=== PATIENT | female | born 1935 | race Caucasian/White ===

== ENCOUNTER 2016-08-14 09:31 | Emergency (ER) | payer MEDICARE ==
[2016-08-14 09:42] VITALS: BP 162/83
--- NOTE | 2016-08-14 12:39 | UC ---
Norma Mcclain Edward, scribed for Sera Ridley DO on 08/14/16 at 1020 . General HPI - HPI Summary HPI Summary: 81 y/o female presents to [facility] with weakness in R leg that started around a week ago. This has caused the patient to be unsteady on her feet; after bracing a fall recently the patient also has an abrasion on her R forearm. Associated sx : SOB, palpitations, decreased appetite recently per patients neighbor, dehydration, dizziness when she gets up fast and back pain that started 6 weeks ago. Patient notes no change in medication. Two weeks ago the patient developed a cold and diarrhea; since then the patient's overall condition has gotten progressively worse. Denies CP, sore throat, ear ache, dysuria, change in urine color and odor, ABD pain, body aches, and slurred speech. SHx hip replacement. No FHx HTN and heart disease. Non-smoker. - History of Current Complaint Chief Complaint: UCGeneralIllness Stated Complaint: WEAKNESS Hx Obtained From: Patient, Family/Public Relations Studies Director - Patient's neighbor Onset/Duration: Gradual Onset - Weakness started 1 week ago. General worsening of condition started two weeks ago Associated Signs & Symptoms: Positive: Diarrhea, Palpitations, SOB, Weakness - R leg, Other - Developed a cold 2 weeks ago. Negative: Abdominal Pain, Back Pain, Chest Pain - Allergy/Home Medications Allergies/Adverse Reactions: Allergies Allergy/AdvReac Type Severity Reaction Status Date / Time Penicillins [PCN] Allergy Rash Verified 12/25/13 23:16 PMH/Surg Hx/FS Hx/Imm Hx Previously Healthy: Yes Other History Of: Negative For: HIV, Hepatitis B - Surgical History Surgical History: Yes Surgery Procedure, Year, and Place: bilat hip replacement - Family History Known Family History: Negative: Cardiac Disease, Hypertension - Social History Occupation: Retired Lives: Alone Alcohol Use: Occasionally Substance Use Type: None Smoking Status (MU): Never Smoked Tobacco Review of Systems Constitutional: Other - Dehydration Skin: Bruising - R arm, Other - Abrasion on R arm Eyes: Negative ENT: Negative Respiratory: Shortness Of Breath Cardiovascular: Palpitations Gastrointestinal: Diarrhea, Other - No ABD pain, N/V Genitourinary: Negative Motor: Weakness - R leg Neurovascular: Negative Musculoskeletal: Negative Neurological: Negative Psychological: Negative All Other Systems Reviewed And Are Negative: Yes Physical Exam Triage Information Reviewed: Yes Appearance: Well-Appearing, No Pain Distress, Well-Nourished Vital Signs: Initial Vital Signs Temp 98 F 08/14/16 09:39 Pulse 114 08/14/16 09:39 Resp 18 08/14/16 09:39 BP 162/83 08/14/16 09:39 Pulse Ox 98 08/14/16 09:39 Vital Signs Reviewed: Yes Eyes: Positive: Conjunctiva Clear. Negative: Discharge ENT: Positive: Hearing grossly normal, Other: - Dry mucous membranes. Negative : Muffled/hoarse voice Neck exam: Normal Neck: Positive: Supple Respiratory: Positive: Lungs clear, No respiratory distress, No accessory muscle use, Decreased breath sounds - L side Cardiovascular: Positive: Tachycardia, Other: - systolic murmr Musculoskeletal Exam: Normal Neurological: Positive: Alert, Muscle Tone Normal Psychological Exam: Normal Psychological: Positive: Age Appropriate Behavior Skin: Positive: Other - Skin tenting. Bruises, cuts and abrasions on R arm. Diagnostics - EKG Cardiac Rate: Tachycardia Cardiac Rhythm: Other Rhythm: Normal - Sinus Tachycardia @ [address] Segment: Normal - No ST changes Course/Dx - Course Course Of Treatment: High BP noted. - Differential Dx - Multi-Symptom Provider Diagnoses: weakness, dehydration, unsteady gait, dizziness, dyspnea Discharge - Discharge Plan Condition: Stable Disposition: ADMITTED TO [facility] Referrals: Jt Almaguer MD [Primary Care Provider] - Additional Instructions: PLEASE CHECK WITH PCP REGARDING HIGH BLOOD PRESSURE The documentation as recorded by the Norma freeman Edward accurately reflects the service I personally performed and the decisions made by , Sera Ridley DO.
== END 2016-08-14 10:50 | disposition short-term general hospital (02) ==
LOC: UCEAST 09:31
DX: M62.81 Muscle weakness (generalized) (principal); E86.0 Dehydration; R26.81 Unsteadiness on feet; R42 Dizziness and giddiness; R06.00 Dyspnea, unspecified
CPT/HCPCS: 93005; 99213; G0463

== ENCOUNTER 2016-08-14 11:13 | Inpatient (IN) | payer MEDICARE, OTHER ==
--- NOTE | 2016-08-14 14:36 | RAD ---
HISTORY: Tachycardia COMPARISONS: None VIEWS:1: Single frontal portable view of the chest at 2 3:00 PM FINDINGS: LINES AND TUBES: None. CARDIOMEDIASTINAL SILHOUETTE: The cardiomediastinal silhouette is normal for portable technique. PLEURA: There is a moderate pleural effusion that may be partially loculated. LUNG PARENCHYMA: There is confluent alveolar opacification of the left lower lung. ABDOMEN: The upper abdomen is clear. There is no subphrenic gas. BONES AND SOFT TISSUES: No bone or soft tissue abnormalities are noted. IMPRESSION: 1. MODERATE LEFT PLEURAL EFFUSION AND MAY BE PARTIALLY LOCULATED. 2. LEFT LOWER LUNG ATELECTASIS VERSUS CONSOLIDATION
--- NOTE | 2016-08-14 14:38 | RAD ---
HISTORY: Bilateral extremity weakness, tachycardia, lethargy COMPARISONS: None TECHNIQUE: Multiple contiguous axial CT scans were obtained of the head without intravenous contrast. FINDINGS: HEMORRHAGE/INFARCT: There is no hemorrhage or acute infarct. MASSES/SHIFT: There is no mass or shift. EXTRA-AXIAL SPACES: There are no extra-axial fluid collections. SULCI AND VENTRICLES: The sulci and ventricles are normal in size and position for the patient's stated age. CEREBRUM: There are no focal parenchymal abnormalities. BRAINSTEM: There are no focal parenchymal abnormalities. CEREBELLUM: There are no focal parenchymal abnormalities. VESSELS: The vessels are grossly normal. PARANASAL SINUSES: The paranasal sinuses are clear. ORBITS: The orbits are unremarkable. BONES AND SOFT TISSUE: No bone or soft tissue abnormalities are noted. OTHER: None IMPRESSION: NO ACUTE INTRACRANIAL PATHOLOGY.
[2016-08-14 15:22] LABS: Hematocrit 31 % (35-47); Hemoglobin 9.9 g/dl (12.0-16.0); Mean Corpuscular HGB Conc 32 g/dl (31-36); Mean Corpuscular Hemoglobin 26 pg (27-31); Mean Corpuscular Volume 83 fL (80-97); Mean Platelet Volume 7 um3 (7.4-10.4); Red Blood Count 3.76 10^6/ul (4.0-5.4); Red Cell Distribution Width 16 % (10.5-15); White Blood Count 9.9 10^3/ul (3.5-10.8)
[2016-08-14 15:36] LABS: Albumin 3.1 g/dL (3.2-5.2); BUN/Creatinine Ratio 32.7 (8-20); C Reactive Protein 222.68 mg/L (< 5.00); Calcium 9.3 mg/dL (8.6-10.3); EGFR African American 145.2 (>60); EGFR Non-African American 112.9 (>60); Globulin 4.2 g/dL (2-4); Total Bilirubin 0.5 mg/dL (0.2-1.0); Total Protein 7.3 g/dL (6.4-8.9)
[2016-08-14 15:37] LABS: Troponin I 0.01 ng/mL (<0.04)
[2016-08-14] MEDS ORDERED: NS 0.9% 1000 ML* 1,000 ML IV SCH (17:45)
[2016-08-14 17:48] LABS: Magnesium 1.9 mg/dL (1.9-2.7)
[2016-08-14 17:57] LABS: TSH (Thyroid Stimulating Horm) 3.7 mcIU/mL (0.34-5.60)
[2016-08-14] MEDS ORDERED: Enoxaparin(*) 40 MG/0.4 ML SYR SUBCUT SCH (18:00)
[2016-08-14] MEDS ORDERED: NS 0.9% 500 ML BAG* 500 ML IV ONE (18:02)
[2016-08-14 18:15] LABS: Urine Bacteria Absent (Absent); Urine Bilirubin Negative (Negative); Urine Glucose Negative (Negative); Urine Nitrite Negative (Negative)
[2016-08-14] MEDS ORDERED: Iohexol 350* (CONTRAST) 500 ML MDV IV ONE (18:17)
--- NOTE | 2016-08-14 18:18 | ED ---
Peyton Mcclain Alfonso, scribed for Levi Yi MD on 08/14/16 at 1311 . Complex/Multi-Sys Presentation - HPI Summary HPI Summary: This patient is an 81 year old F BIBA to [facility] accompanied by two neighbors with a chief complaint of weakness since 10 days ago. The weakness is worse as of 3 days ago. Pt reports the weakness began in her RLE but is now in bilateral LE. Pt reports my right leg would give out on me and it took me three attempts to get out of my recliner chair yesterday. Pt reports a fall secondary to weakness a week ago. Pt rates the pain 0/10 in severity. Symptoms aggravated and alleviated by nothing. Pt reports SOB, palpitations, diaphoresis , loss of appetite, tiredness, and back pain. Pt denies insomnia, urinary symptoms, and bowel symptoms. Pt presented to [facility] earlier today with provider diagnoses of weakness, dehydration, unsteady gait, dizziness, and dyspnea. PMHx of HTN. - History Of Current Complaint Chief Complaint: EDGeneral Time Seen by Provider: 08/14/16 13:03 Hx Obtained From: Patient Onset/Duration: Sudden Onset, Lasting Days - 10 days, Worse Since - 3 days Timing: Constant Severity Currently: Mild Severity Initially: Mild Aggravating Factor(s): Nothing. Alleviating Factor(s): Nothing. Associated Signs And Symptoms: Positive: Recent Trauma - Fall about 1 week ago secondary to weakness, Other - Positive LE weakness, SOB, palpitations, diaphoresis, loss of appetite, tiredness, and back pain; negative insomnia, urinary symptoms, and bowel symptoms. - Allergies/Home Medications Allergies/Adverse Reactions: Allergies Allergy/AdvReac Type Severity Reaction Status Date / Time Penicillins [PCN] Allergy Rash Verified 12/25/13 23:16 PMH/Surg Hx/FS Hx/Imm Hx Cardiovascular History: Reports: Hx Hypertension Opthamlomology History: Denies: Hx Legally Blind EENT History: Denies: Hx Deafness - Surgical History Surgery Procedure, Year, and Place: bilat hip replacement Infectious Disease History: No Infectious Disease History: Denies: Hx Clostridium Difficile, Hx Hepatitis, Hx Human Immunodeficiency Virus (HIV), Hx of Known/Suspected MRSA, Hx Shingles, Hx Tuberculosis, Hx Known/ Suspected VRE, Hx Known/Suspected VRSA, History Other Infectious Disease, Traveled Outside the [place] in Last 30 Days - Family History Known Family History: Negative: Cardiac Disease, Hypertension - Social History Occupation: Retired Lives: Alone Alcohol Use: Occasionally Substance Use Type: Reports: None Smoking Status (MU): Never Smoked Tobacco Review of Systems Positive: Skin Diaphoresis Positive: Palpitations Positive: Shortness Of Breath Positive: Other - Positive loss of appetite; negative bowel symptoms Positive: no symptoms reported Positive: Arthralgia - Positive back pain Neurological: Other - Positive tired; negative insomnia, Positive: Weakness - LE All Other Systems Reviewed And Are Negative: Yes Physical Exam Triage Information Reviewed: Yes Vital Signs On Initial Exam: Initial Vitals BP 155/70 08/14/16 11:26 Vital Signs Reviewed: Yes Appearance: Positive: Well-Appearing, No Pain Distress Skin: Positive: Warm, Skin Color Reflects Adequate Perfusion, Dry Head/Face: Positive: Normal Head/Face Inspection Eyes: Positive: Normal ENT: Positive: Normal ENT inspection Neck: Positive: Supple, Nontender Respiratory/Lung Sounds: Positive: Clear to Auscultation, Breath Sounds Present Cardiovascular: Positive: RRR, Tachycardia Abdomen Description: Positive: Nontender, No Organomegaly Bowel Sounds: Positive: Present Musculoskeletal: Positive: Normal, Strength/ROM Intact Neurological: Positive: Normal, Sensory/Motor Intact, Alert, Oriented to Person Place, Time, CN Intact II-III Psychiatric: Positive: Affect/Mood Appropriate Diagnostics - Vital Signs Vital Signs Temp Pulse Resp BP Pulse Ox 08/14/16 12:00 103 35 138/71 95 08/14/16 11:30 99.3 F 109 24 139/62 96 08/14/16 11:27 28 08/14/16 11:26 155/70 - Laboratory Lab Results: Lab Results 08/14/16 08/14/16 08/14/16 Range/Units 15:10 15:10 15:10 WBC 9.9 (3.5-10.8) 10^3/ul RBC 3.76 L (4.0-5.4) 10^6/ul Hgb 9.9 L (12.0-16.0) g/dl Hct 31 L (35-47) % MCV 83 (80-97) fL MCH 26 L (27-31) pg MCHC 32 (31-36) g/dl RDW 16 H (10.5-15) % Plt Count 392 (150-450) 10^3/ul MPV 7 L (7.4-10.4) um3 Neut % (Auto) 72.4 (38-83) % Lymph % (Auto) 15.3 L (25-47) % Queens % (Auto) 10.8 H (1-9) % Eos % (Auto) 0.8 (0-6) % Baso % (Auto) 0.7 (0-2) % Absolute Neuts (auto) 7.1 (1.5-7.7) 10^3/ul Absolute Lymphs (auto) 1.5 (1.0-4.8) 10^3/ul Absolute Monos (auto) 1.1 H (0-0.8) 10^3/ul Absolute Eos (auto) 0.1 (0-0.6) 10^3/ul Absolute Basos (auto) 0.1 (0-0.2) 10^3/ul Absolute Nucleated RBC 0 10^3/ul Nucleated RBC % 0 INR (Anticoag Therapy) (0.89-1.11) APTT (26.0-36.3) seconds D-Dimer, Quantitative (Less Than 230) ng/mL Sodium 133 (133-145) mmol/L Potassium 4.0 (3.5-5.0) mmol/L Chloride 99 L (101-111) mmol/L Carbon Dioxide 25 (22-32) mmol/L Anion Gap 9 (2-11) mmol/L BUN 17 (6-24) mg/dL Creatinine 0.52 (0.51-0.95) mg/dL Est GFR ( Amer) 145.2 (>60) Est GFR (Non-Af Amer) 112.9 (>60) BUN/Creatinine Ratio 32.7 H (8-20) Glucose 80 (70-100) mg/dL Lactic Acid 1.1 (0.5-2.0) mmol/L Calcium 9.3 (8.6-10.3) mg/dL Magnesium 1.9 (1.9-2.7) mg/dL Total Bilirubin 0.50 (0.2-1.0) mg/dL AST 21 (13-39) U/L ALT 11 (7-52) U/L Alkaline Phosphatase 84 (34-104) U/L Troponin I 0.01 (<0.04) ng/mL C-Reactive Protein 222.68 H (< 5.00) mg/L B-Natriuretic Peptide ( - 100) pg/mL Total Protein 7.3 (6.4-8.9) g/dL Albumin 3.1 L (3.2-5.2) g/dL Globulin 4.2 H (2-4) g/dL Albumin/Globulin Ratio 0.7 L (1-3) Procalcitonin (<0.6) ng/mL TSH 3.70 (0.34-5.60) mcIU/mL 08/14/16 08/14/16 08/14/16 Range/Units 15:10 15:10 15:50 WBC (3.5-10.8) 10^3/ul RBC (4.0-5.4) 10^6/ul Hgb (12.0-16.0) g/dl Hct (35-47) % MCV (80-97) fL MCH (27-31) pg MCHC (31-36) g/dl RDW (10.5-15) % Plt Count (150-450) 10^3/ul MPV (7.4-10.4) um3 Neut % (Auto) (38-83) % Lymph % (Auto) (25-47) % Queens % (Auto) (1-9) % Eos % (Auto) (0-6) % Baso % (Auto) (0-2) % Absolute Neuts (auto) (1.5-7.7) 10^3/ul Absolute Lymphs (auto) (1.0-4.8) 10^3/ul Absolute Monos (auto) (0-0.8) 10^3/ul Absolute Eos (auto) (0-0.6) 10^3/ul Absolute Basos (auto) (0-0.2) 10^3/ul Absolute Nucleated RBC 10^3/ul Nucleated RBC % INR (Anticoag Therapy) 1.02 (0.89-1.11) APTT 30.7 (26.0-36.3) seconds D-Dimer, Quantitative 554 H (Less Than 230) ng/mL Sodium (133-145) mmol/L Potassium (3.5-5.0) mmol/L Chloride (101-111) mmol/L Carbon Dioxide (22-32) mmol/L Anion Gap (2-11) mmol/L BUN (6-24) mg/dL Creatinine (0.51-0.95) mg/dL Est GFR ( Amer) (>60) Est GFR (Non-Af Amer) (>60) BUN/Creatinine Ratio (8-20) Glucose (70-100) mg/dL Lactic Acid (0.5-2.0) mmol/L Calcium (8.6-10.3) mg/dL Magnesium (1.9-2.7) mg/dL Total Bilirubin (0.2-1.0) mg/dL AST (13-39) U/L ALT (7-52) U/L Alkaline Phosphatase (34-104) U/L Troponin I (<0.04) ng/mL C-Reactive Protein (< 5.00) mg/L B-Natriuretic Peptide 169 H ( - 100) pg/mL Total Protein (6.4-8.9) g/dL Albumin (3.2-5.2) g/dL Globulin (2-4) g/dL Albumin/Globulin Ratio (1-3) Procalcitonin 0.9 H (<0.6) ng/mL TSH (0.34-5.60) mcIU/mL Result Diagrams: 08/14/16 15:10 08/14/16 15:10 Lab Statement: Any lab studies that have been ordered have been reviewed, and results considered in the medical decision making process. - Radiology CXR Radiology Interpretation Completed By: Radiologist - 1. MODERATE LEFT PLEURAL EFFUSION AND MAY BE PARTIALLY LOCULATED. 2. LEFT LOWER LUNG ATELECTASIS VERSUS CONSOLIDATION - CT Brain CT CT Interpretation Completed By: Radiologist - NO ACUTE INTRACRANIAL PATHOLOGY. - EKG 1536 Cardiac Rate: Tachycardia - BPM 102 EKG Rhythm: Sinus Tachycardia EKG Comparison: No Significant Change - Unchanged from [facility] EKG earlier today at 1024. Re-Evaluation - Re-Evaluation First Eval Re-Evaluation Time: 16:10 Change: Unchanged Comment: Pt is still tachycardic and tachypneic. Complex Multi-Symp Course/Dx Course Of Treatment: Ms. Scott presented with some vague C/O but was noticed to be tachycardic and tachypneic. She was found to have a large left pleural effusion and was admitted to the hospitalist service for a diagnostic and therapeutic pleurocentesis. - Diagnoses Provider Diagnoses: Pleural effusion - Physician Notifications Discussed Care Of Patient With: Tg Rico Time Discussed With Above Provider: 16:13 Instructed by Provider To: Other - Consulted Dr. Rico (Hospitalist) who agrees to admit. - Critical Care Time Critical Care Time: 30-74 min Discharge - Discharge Plan Condition: Stable Disposition: ADMITTED TO [facility] documentation as recorded by the Peyton freeman Alfonso accurately reflects the service I personally performed and the decisions made by me, Levi Yi MD.
--- NOTE | 2016-08-14 18:39 | RAD ---
HISTORY: Pleural effusion, rule out PE COMPARISONS: None TECHNIQUE: Multiple contiguous axial CT scans of the chest were obtained after the administration of nonionic intravenous contrast, timed to the pulmonary arterial phase of contrast enhancement.. Coronal and sagittal multiplanar reformations are also submitted for review. FINDINGS: NECK AND THYROID: The lower neck and thyroid are unremarkable. CHEST WALL: There is no lower cervical, axillary, or supraclavicular lymphadenopathy by size criteria. HEART AND PERICARDIUM: The heart is unremarkable. There is an enlarged lymph node of the pericardial fat on the left. AORTA AND PULMONARY VASCULATURE: There is no pulmonary arterial filling defect to suggest pulmonary embolism. There is no linear filling defect within the aorta to suggest aortic dissection. There is atherosclerosis of the thoracic aorta MEDIASTINUM: There are subcentimeter short axis AP window and pretracheal lymph nodes. SILVANO: There is no hilar lymphadenopathy by size criteria. AIRWAY AND ESOPHAGUS: The airway is unremarkable, without endobronchial filling defect. The esophagus is grossly normal. LUNG PARENCHYMA: There is mild interlobular septal thickening of the left upper lobe. PLEURA: There is extensive nodular pleural thickening throughout the left hemithorax, including along the fissure and diaphragmatic surface. UPPER ABDOMEN: The upper abdomen is unremarkable. BONES AND SOFT TISSUES: Degenerative changes are noted of the spine OTHER: None. IMPRESSION: 1. NO PULMONARY ARTERIAL FILLING DEFECT TO SUGGEST PULMONARY EMBOLISM. 2. THERE IS EXTENSIVE NODULAR PLEURAL THICKENING OF THE LEFT HEMITHORAX, WITH AN ENLARGED PERICARDIAL LYMPH NODE, CONCERNING FOR NEOPLASM
[2016-08-14] MEDS ORDERED: Iohexol 350* (CONTRAST) 500 ML MDV IV SCH (19:00)
[2016-08-14] MEDS ORDERED: cefTRIAXone VIAL(*) 1,000 MG in NS 0.9% 50 ML* 50 ML IVPB SCH (20:00)
[2016-08-14] MEDS ORDERED: Azithromycin IV(*) 500 MG in NS 0.9% 250 ML* 250 ML IVPB SCH (20:30)
[2016-08-14] MEDS: Metoprolol Tartrate TAB* 25 MG PO SCH (20:36)
[2016-08-14] MEDS: Enoxaparin(*) 40 MG/0.4 ML SYR SUBCUT SCH (20:40)
--- NOTE | 2016-08-15 01:27 | HP ---
CC: Dr. Almaguer * MEDICINE HISTORY AND PHYSICAL: DATE OF ADMISSION: 08/14/16 PROVIDER: Anna Espitia NP. ATTENDING PHYSICIAN: Dr. Tg Quan * (dictated by Anna Espitia NP). PRIMARY CARE PROVIDER: Dr. Jt Almaguer. CHIEF COMPLAINT: Shortness of breath and weakness. HISTORY OF PRESENT ILLNESS: Ms. Scott is an 81-year-old female who only reports a past medical history of hypertension, who presents today with concern for shortness of breath both at rest and with exertion that has been ongoing for at least a week, up to a week and a half. The patient reports that she has had increased activity intolerance and associated weakness. She has had a couple of near falls but denies any head injury but did injure her right arm. She reports that she becomes weak and her legs give out. She denies syncopal episode or near syncopal episodes or any prodrome preceding these episodes. She states it is due to overall weakness that is new in onset. Again, she only reports history of high blood pressure. Denies any known thyroid history, diabetes, coronary artery disease or heart failure. The patient states that she was pretty healthy up until about a month ago when she had a cold and since then has had a lingering cough. The patient denies any recent fevers, subjective chills or sweats. She does report decreased p.o. intake and states that she has perhaps lost 5 to 10 pounds over the last 3 months without trying. Again, she reports having a cold about a month ago with a lingering nonproductive cough. She denies any chest pain or lower extremity edema. She denies syncope, orthopnea, daytime sleepiness. She does report palpitations and racing heart beat this morning. She denies any hemoptysis. She denies abdominal pain, nausea, vomiting, diarrhea. She denies dysuria, urinary frequency or hematuria. She actually feels she is dehydrated, but does not urinate as frequently anymore. She denies any focal weakness, sensory loss, ataxia, difficulty with speech. She denies any visual complaints, hearing complaints, swallowing issues or headache. She denies any new rashes or lesions. She does state that she has some back pain 3 to 4 days ago, which occurred before she fell. She describes that as muscle pain and used her friend's Salonpas patches with good effect. She denies any recent anxiety or depression or any history of mental health issues. The patient was originally seen at [facility] and then referred to the ER, as there was concern for tachycardia and high blood pressure. Here in the ER, the patient's evaluation included a CT of the brain, which was negative. Her EKG showed concern for sinus tachycardia with probable left ventricular hypertrophy. However, it was her chest x-ray which was most concerning, which showed a moderate left pleural effusion that may be partially loculated, as well as left lower lung atelectasis versus consolidation. PAST MEDICAL HISTORY: The patient only reports history of high blood pressure. HOME MEDICATIONS: The patient takes hydrochlorothiazide 25 mg daily. ALLERGIES: PENICILLIN. FAMILY HISTORY: The patient is unaware of medical history of her family members. SOCIAL HISTORY: She denies any former or current tobacco use. She states that she occasionally drinks alcohol. When asked to quantify, she states that she drinks 1 to 2 glasses of wine a day. She denies any drug use. 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 She lives independently by herself, with 4 cats. Her neighbors check in on her frequently. Her daughter, Mireya Haro, is her healthcare proxy and can be reached at [phone]. Mireya's , Marcelino aHro, can also be reached if Mireya is unavailable and he has a number [phone]. REVIEW OF SYSTEMS: As per HPI. PHYSICAL EXAMINATION GENERAL: Ms. Scott is a well-developed, appears younger than stated age female, who is lying in the ED stretcher, in no acute distress. VITAL SIGNS: Temperature 99.3, heart rate 110, respiratory rate 22, blood pressure 152/75, and O2 saturation is 96% on room air. HEENT: Head is atraumatic, normocephalic. Face is symmetrical. Pupils are equal, round, and reactive to light. Sclerae are anicteric. Extraocular movements are intact. Oral mucosa appears somewhat dry. NECK: Supple. The patient has full range of motion. No JVD noted. RESPIRATORY. The patient has decreased breath sounds on the left side, but aeration is heard through all lung rowe, though poor on the left. There is no accessory muscle use noted. CARDIAC: S1, S2 heart sounds. Regular rate and rhythm, though the patient is tachycardic. She has a harsh systolic murmur, grade 3/6 to 4/6. MUSCULOSKELETAL: There is no clubbing or cyanosis. The patient is able to move all extremities with apparent full range of motion. There is no peripheral edema. The patient has 2+ distal pulses. SKIN: There is an abrasion to the right arm. The patient does have some skin tenting. NEUROLOGIC: Cranial nerves II through XII are grossly intact. The patient moves all extremities. She follows directions. No focal deficits noted. Sensation is intact to light touch to the lower extremities. PSYCH: She is alert and oriented x3. Her affect is appropriate. LABORATORY DATA AND DIAGNOSTIC STUDIES: CBC: WBC 9.9, hemoglobin 9.9, hematocrit 31, platelet count 392. INR 1.02. CMP: Sodium 133, potassium 4.0, chloride 99, carbon dioxide 25, BUN 17, creatinine 0.52, glucose 80, lactic acid 1.1, calcium 9.3, magnesium 1.9. Total bilirubin 0.5, AST 21, ALT 11, alk phos 84. Troponin 0.01. CRP is 222.68. BNP 169. Albumin 3.1. The patient had a CT of the brain, chest x-ray, and EKG as per HPI. Again, chest x-ray shows concern for a left moderate pleural effusion that may be loculated. The patient has no old records for review. ASSESSMENT AND PLAN: Ms. Scott is an 81-year-old female who presents today with concern for weakness and dyspnea and was found to have a left-sided pleural effusion. She will be admitted to the telemetry floor. Plan is as follows: 1. Pleural effusion. The patient will be ordered an ultrasound-guided thoracentesis for Tuesday. She is hemodynamically stable. We will continue to monitor on telemetry. It is unclear as to why the patient has a pleural effusion, although there is concern for potential heart failure as well as pulmonary embolism. I will also check a CT of the chest to further evaluate the lung. Malignancy is also a consideration. The patient also reports a cold 1 month ago, which may have been pneumonia, but it sounds like she did not receive any antibiotic treatment for this. No evidence seen of this on CXR, however. She shows no sign of liver dysfunction or acute or chronic kidney dysfunction that would explain pleural effusion. Her symptoms of dyspnea and dry cough could be a sign of pleural effusion, but may also be infection or neoplasm. I will also check a procalcitonin, continue to monitor, and await diagnostic fluid testing. 3. Tachycardia. I am not sure how long the patient has had tachycardia. This may be in response to her pleural effusion. This may also be secondary to other factors such as a pulmonary embolism. The patient may also be having arrhythmias, which we have not yet captured here. We will continue to monitor her on telemetry. I do suspect the patient is dry, with her pleural effusion I will carefully give her some fluids as this may help with her tachycardia and I will also check a TSH and her electrolytes. Continue to monitor. Troponin is negative, she is not complaining of any chest pain. 4. Anemia. I am unsure of the acuity of this. The patient does not have any previous labs. We will attempt to obtain records from her PCP on Tuesday when [facility] is open. Continue to monitor for signs of bleeding. 5. Hypertension. The patient is hypertensive here. Her daughter brings in recorded blood pressures that one of her neighbors took and this neighbor is a nurse. The patient had blood pressures ranging from 147 to 170 systolic. At this time, I am holding her hydrochlorothiazide because again I suspect that she is dry and she does have decreased p.o. intake and is likely taking hydrochlorothiazide regardless of her p.o. intake. She may benefit from a diuretic. At this time, I will carefully rehydrate her with 500 mL of fluid and we will continue her on metoprolol at this time. We will also make p.r.n. hydralazine available. 6. Weakness, perhaps secondary to these acute processes. PT and OT are ordered. The patient does live independently, so she will need to be able to show an ability to effectively take care of herself prior to discharge. 7. FEN. The patient is ordered a heart-healthy diet. 8. DVT prophylaxis. Subcu Lovenox. 9. Code status: She is a full code. TIME SPENT: Time spent on this admission was approximately 60 minutes, more than half that time was spent [id number] with the patient obtaining history and physical, performing physical examination, and reviewing the plan of care. Plan of care was also reviewed with my attending, Dr. Quan, who is in agreement. ANNA ESPITIA, FISH STRAIGHTENER [id number]/[facility] #: [id number] [facility]ITALLast
[2016-08-15 05:55] LABS: Hematocrit 30 % (35-47); Hemoglobin 9.8 g/dl (12.0-16.0); Mean Corpuscular HGB Conc 32 g/dl (31-36); Mean Corpuscular Hemoglobin 27 pg (27-31); Mean Corpuscular Volume 83 fL (80-97); Mean Platelet Volume 8 um3 (7.4-10.4); Red Blood Count 3.66 10^6/ul (4.0-5.4); Red Cell Distribution Width 16 % (10.5-15); White Blood Count 7.3 10^3/ul (3.5-10.8)
[2016-08-15 06:09] LABS: BUN/Creatinine Ratio 29.8 (8-20); Calcium 8.5 mg/dL (8.6-10.3); EGFR African American 163.2 (>60); EGFR Non-African American 126.9 (>60); HDL Cholesterol 21.8 mg/dL; Potassium 3.2 mmol/L (3.5-5.0)
[2016-08-15] MEDS: Potassium Chlor TAB* 10 MEQ TAB.ER PO SCH ×3 (08:23→12:21)
[2016-08-15] MEDS: Metoprolol Tartrate TAB* 25 MG PO SCH ×2 (08:23→20:40)
--- NOTE | 2016-08-15 09:50 | PN ---
Subjective Date of Service: 08/15/16 Interval History: Weak, [place]. No cough. Appetite OK. Pt states she lost about 2 lbs recently. Objective Active Medications: Enoxaparin Sodium (Lovenox(*)) 40 mg SUBCUT Q24H [facility] Last Admin: 08/14/16 20:40 Dose: 40 mg Iohexol (Omnipaque 350 (Contrast)-) 59 ml IV ONCE [facility] Stop: 08/16/16 18:16 Metoprolol Tartrate (Lopressor Tab*) 25 mg PO BID [facility] Last Admin: 08/15/16 08:23 Dose: 25 mg Potassium Chloride (Klor Con Er Tab*) 20 meq PO Q2H [facility] Stop: 08/15/16 12:01 Last Admin: 08/15/16 08:23 Dose: 20 meq Vital Signs 08/14/16 08/14/16 08/14/16 16:54 17:00 19:21 Temperature 99.1 F 99.4 F Pulse Rate 117 109 115 Respiratory 18 35 16 Rate Blood Pressure 147/53 148/58 (mmHg) O2 Sat by Pulse 100 90 95 Oximetry 08/14/16 08/14/16 08/14/16 20:00 20:31 23:34 Temperature 98.7 F Pulse Rate 96 Respiratory 16 16 Rate Blood Pressure 131/57 (mmHg) O2 Sat by Pulse 96 96 93 Oximetry 08/15/16 08/15/16 08/15/16 03:38 07:26 08:00 Temperature 98.0 F 97.7 F Pulse Rate 100 95 Respiratory 16 20 18 Rate Blood Pressure 127/54 131/58 (mmHg) O2 Sat by Pulse 95 94 94 Oximetry Oxygen Devices in Use Now: None Appearance: Alert, sitting up in bed. In fair spirits. Looks ocmfortable. Eyes: No Scleral Icterus Neck: NL Appearance and Movements; NL JVP, No Thyroid Enlargement, Masses Respiratory: Symmetrical Chest Expansion and Respiratory Effort, Clear to Percussion, - - Sl diminished BS L chest. Cardiovascular: NL Sounds; No Murmurs; No JVD, RRR, No Edema, - Lymphatic: No Cervical Adenopathy, No Axillary Adenopathy, No Auricular Adenopathy Extremities: No Edema, No Clubbing, Cyanosis, - Skin: No Rash or Ulcers, No Nodules or Sclerosis, - Neurological: Alert and Oriented x 3, NL Sensation Result Diagrams: 08/15/16 05:08 08/15/16 05:08 Additional Lab and Data: Lab Results 08/14/16 08/14/16 08/14/16 Range/Units 15:10 15:10 15:10 WBC 9.9 (3.5-10.8) 10^3/ul RBC 3.76 L (4.0-5.4) 10^6/ul Hgb 9.9 L (12.0-16.0) g/dl Hct 31 L (35-47) % MCV 83 (80-97) fL MCH 26 L (27-31) pg MCHC 32 (31-36) g/dl RDW 16 H (10.5-15) % Plt Count 392 (150-450) 10^3/ul MPV 7 L (7.4-10.4) um3 Neut % (Auto) 72.4 (38-83) % Lymph % (Auto) 15.3 L (25-47) % [place] % (Auto) 10.8 H (1-9) % Eos % (Auto) 0.8 (0-6) % Baso % (Auto) 0.7 (0-2) % Absolute Neuts (auto) 7.1 (1.5-7.7) 10^3/ul Absolute Lymphs (auto) 1.5 (1.0-4.8) 10^3/ul Absolute Monos (auto) 1.1 H (0-0.8) 10^3/ul Absolute Eos (auto) 0.1 (0-0.6) 10^3/ul Absolute Basos (auto) 0.1 (0-0.2) 10^3/ul Absolute Nucleated RBC 0 10^3/ul Nucleated RBC % 0 INR (Anticoag Therapy) (0.89-1.11) APTT (26.0-36.3) seconds D-Dimer, Quantitative (Less Than 230) ng/mL Sodium 133 (133-145) mmol/L Potassium 4.0 (3.5-5.0) mmol/L Chloride 99 L (101-111) mmol/L Carbon Dioxide 25 (22-32) mmol/L Anion Gap 9 (2-11) mmol/L BUN 17 (6-24) mg/dL Creatinine 0.52 (0.51-0.95) mg/dL Est GFR ( Amer) 145.2 (>60) Est GFR (Non-Af Amer) 112.9 (>60) BUN/Creatinine Ratio 32.7 H (8-20) Glucose 80 (70-100) mg/dL Lactic Acid 1.1 (0.5-2.0) mmol/L Calcium 9.3 (8.6-10.3) mg/dL Magnesium 1.9 (1.9-2.7) mg/dL Total Bilirubin 0.50 (0.2-1.0) mg/dL AST 21 (13-39) U/L ALT 11 (7-52) U/L Alkaline Phosphatase 84 (34-104) U/L Troponin I 0.01 (<0.04) ng/mL C-Reactive Protein 222.68 H (< 5.00) mg/L B-Natriuretic Peptide ( - 100) pg/mL Total Protein 7.3 (6.4-8.9) g/dL Albumin 3.1 L (3.2-5.2) g/dL Globulin 4.2 H (2-4) g/dL Albumin/Globulin Ratio 0.7 L (1-3) Procalcitonin (<0.6) ng/mL TSH 3.70 (0.34-5.60) mcIU/mL 08/14/16 08/14/16 08/14/16 Range/Units 15:10 15:10 15:50 WBC (3.5-10.8) 10^3/ul RBC (4.0-5.4) 10^6/ul Hgb (12.0-16.0) g/dl Hct (35-47) % MCV (80-97) fL MCH (27-31) pg MCHC (31-36) g/dl RDW (10.5-15) % Plt Count (150-450) 10^3/ul MPV (7.4-10.4) um3 Neut % (Auto) (38-83) % Lymph % (Auto) (25-47) % [place] % (Auto) (1-9) % Eos % (Auto) (0-6) % Baso % (Auto) (0-2) % Absolute Neuts (auto) (1.5-7.7) 10^3/ul Absolute Lymphs (auto) (1.0-4.8) 10^3/ul Absolute Monos (auto) (0-0.8) 10^3/ul Absolute Eos (auto) (0-0.6) 10^3/ul Absolute Basos (auto) (0-0.2) 10^3/ul Absolute Nucleated RBC 10^3/ul Nucleated RBC % INR (Anticoag Therapy) 1.02 (0.89-1.11) APTT 30.7 (26.0-36.3) seconds D-Dimer, Quantitative 554 H (Less Than 230) ng/mL Sodium (133-145) mmol/L Potassium (3.5-5.0) mmol/L Chloride (101-111) mmol/L Carbon Dioxide (22-32) mmol/L Anion Gap (2-11) mmol/L BUN (6-24) mg/dL Creatinine (0.51-0.95) mg/dL Est GFR ( Amer) (>60) Est GFR (Non-Af Amer) (>60) BUN/Creatinine Ratio (8-20) Glucose (70-100) mg/dL Lactic Acid (0.5-2.0) mmol/L Calcium (8.6-10.3) mg/dL Magnesium (1.9-2.7) mg/dL Total Bilirubin (0.2-1.0) mg/dL AST (13-39) U/L ALT (7-52) U/L Alkaline Phosphatase (34-104) U/L Troponin I (<0.04) ng/mL C-Reactive Protein (< 5.00) mg/L B-Natriuretic Peptide 169 H ( - 100) pg/mL Total Protein (6.4-8.9) g/dL Albumin (3.2-5.2) g/dL Globulin (2-4) g/dL Albumin/Globulin Ratio (1-3) Procalcitonin 0.9 H (<0.6) ng/mL TSH (0.34-5.60) mcIU/mL Assess/Plan/Problems-Billing Assessment: - Patient Problems (1) Pleural thickening Current Visit: Yes Status: Acute Comment: Pleural bx requested, will be scheduled on Wednesday 08/16. Suspect malignancy, ? mesothelioma. (2) Anemia Current Visit: Yes Status: Acute Code(s): D64.9 - ANEMIA, UNSPECIFIED SNOMED Code(s): 567527775 Comment: Possibly related to a malignancy. (3) HTN (hypertension) Current Visit: Yes Status: Acute Code(s): I10 - ESSENTIAL (PRIMARY) HYPERTENSION SNOMED Code(s): 99713048 Comment: Hold thiazide. (4) Weakness Current Visit: Yes Status: Acute Code(s): R53.1 - WEAKNESS SNOMED Code(s) : 24561953 Comment: PT ari requested.
--- NOTE | 2016-08-15 16:26 | PN ---
Progress Note - Progress Note Date of Service: 08/15/16 Note: Some visitors were concerned about the patient's mental state, also R leg weakness. Pt states her R leg was weak about a week ago and that lasted about 1 day. It seems strong to her today. On exam she is pleasant and cooperative. Foot and knee flexions and dorsiflexion strong BL. She knows th present month , day of week, and her age. I don't think there is any acute neurological problem.
[2016-08-15] MEDS ORDERED: Azithromycin IV(*) 250 MG in NS 0.9% 250 ML* 250 ML IVPB SCH (20:30)
[2016-08-15] MEDS: Enoxaparin(*) 40 MG/0.4 ML SYR SUBCUT SCH (20:42)
[2016-08-16 06:11] LABS: BUN/Creatinine Ratio 29.2 (8-20); Calcium 8.7 mg/dL (8.6-10.3); EGFR African American 159.2 (>60); EGFR Non-African American 123.8 (>60); Potassium 4.1 mmol/L (3.5-5.0)
[2016-08-16] MEDS: Metoprolol Tartrate TAB* 25 MG PO SCH ×2 (08:19→20:45)
--- NOTE | 2016-08-16 09:05 | PN ---
Subjective Date of Service: 08/16/16 Interval History: Pt is feeling about the same as when she presented to the ER. She has not done any walking around. She is nervous about undergoing the pleural biopsy. She is worried about it being too painful. Objective Active Medications: Iohexol (Omnipaque 350 (Contrast)-) 59 ml IV ONCE [facility] Stop: 08/16/16 18:16 Metoprolol Tartrate (Lopressor Tab*) 25 mg PO BID [facility] Last Admin: 08/16/16 08:19 Dose: 25 mg Vital Signs 08/15/16 08/15/16 08/15/16 12:06 15:11 19:37 Temperature 97.6 F 97.6 F 98.3 F Pulse Rate 98 103 109 Respiratory 20 20 16 Rate Blood Pressure 136/55 138/60 131/55 (mmHg) O2 Sat by Pulse 99 98 96 Oximetry 08/15/16 08/15/16 08/16/16 20:00 23:19 00:00 Temperature 98.2 F Pulse Rate 95 Respiratory 16 16 Rate Blood Pressure 125/62 (mmHg) O2 Sat by Pulse 96 97 99 Oximetry 08/16/16 08/16/16 03:08 07:21 Temperature 97.6 F 97.3 F Pulse Rate 92 96 Respiratory 16 24 Rate Blood Pressure 135/58 133/54 (mmHg) O2 Sat by Pulse 99 95 Oximetry Oxygen Devices in Use Now: None Appearance: Elderly thin female sitting up in a recliner, NAD Eyes: No Scleral Icterus Ears/Nose/Mouth/Throat: Mucous Membranes Moist Respiratory: Symmetrical Chest Expansion and Respiratory Effort, - - L lung breath sounds diminished in all rowe, R CTA Cardiovascular: NL Sounds; No Murmurs; No JVD, No Edema, - - mildly tachycardic but regular Abdominal: NL Sounds; No Tenderness; No Distention Extremities: No Clubbing, Cyanosis Skin: No Rash or Ulcers, No Nodules or Sclerosis Neurological: Alert and Oriented x 3 Result Diagrams: 08/15/16 05:08 08/16/16 05:36 Additional Lab and Data: Lab Results 08/14/16 08/14/16 08/14/16 Range/Units 15:10 15:10 15:10 WBC 9.9 (3.5-10.8) 10^3/ul RBC 3.76 L (4.0-5.4) 10^6/ul Hgb 9.9 L (12.0-16.0) g/dl Hct 31 L (35-47) % MCV 83 (80-97) fL MCH 26 L (27-31) pg MCHC 32 (31-36) g/dl RDW 16 H (10.5-15) % Plt Count 392 (150-450) 10^3/ul MPV 7 L (7.4-10.4) um3 Neut % (Auto) 72.4 (38-83) % Lymph % (Auto) 15.3 L (25-47) % [place] % (Auto) 10.8 H (1-9) % Eos % (Auto) 0.8 (0-6) % Baso % (Auto) 0.7 (0-2) % Absolute Neuts (auto) 7.1 (1.5-7.7) 10^3/ul Absolute Lymphs (auto) 1.5 (1.0-4.8) 10^3/ul Absolute Monos (auto) 1.1 H (0-0.8) 10^3/ul Absolute Eos (auto) 0.1 (0-0.6) 10^3/ul Absolute Basos (auto) 0.1 (0-0.2) 10^3/ul Absolute Nucleated RBC 0 10^3/ul Nucleated RBC % 0 INR (Anticoag Therapy) (0.89-1.11) APTT (26.0-36.3) seconds D-Dimer, Quantitative (Less Than 230) ng/mL Sodium 133 (133-145) mmol/L Potassium 4.0 (3.5-5.0) mmol/L Chloride 99 L (101-111) mmol/L Carbon Dioxide 25 (22-32) mmol/L Anion Gap 9 (2-11) mmol/L BUN 17 (6-24) mg/dL Creatinine 0.52 (0.51-0.95) mg/dL Est GFR ( Amer) 145.2 (>60) Est GFR (Non-Af Amer) 112.9 (>60) BUN/Creatinine Ratio 32.7 H (8-20) Glucose 80 (70-100) mg/dL Lactic Acid 1.1 (0.5-2.0) mmol/L Calcium 9.3 (8.6-10.3) mg/dL Magnesium 1.9 (1.9-2.7) mg/dL Total Bilirubin 0.50 (0.2-1.0) mg/dL AST 21 (13-39) U/L ALT 11 (7-52) U/L Alkaline Phosphatase 84 (34-104) U/L Troponin I 0.01 (<0.04) ng/mL C-Reactive Protein 222.68 H (< 5.00) mg/L B-Natriuretic Peptide ( - 100) pg/mL Total Protein 7.3 (6.4-8.9) g/dL Albumin 3.1 L (3.2-5.2) g/dL Globulin 4.2 H (2-4) g/dL Albumin/Globulin Ratio 0.7 L (1-3) Procalcitonin (<0.6) ng/mL TSH 3.70 (0.34-5.60) mcIU/mL 08/14/16 08/14/16 08/14/16 Range/Units 15:10 15:10 15:50 WBC (3.5-10.8) 10^3/ul RBC (4.0-5.4) 10^6/ul Hgb (12.0-16.0) g/dl Hct (35-47) % MCV (80-97) fL MCH (27-31) pg MCHC (31-36) g/dl RDW (10.5-15) % Plt Count (150-450) 10^3/ul MPV (7.4-10.4) um3 Neut % (Auto) (38-83) % Lymph % (Auto) (25-47) % [place] % (Auto) (1-9) % Eos % (Auto) (0-6) % Baso % (Auto) (0-2) % Absolute Neuts (auto) (1.5-7.7) 10^3/ul Absolute Lymphs (auto) (1.0-4.8) 10^3/ul Absolute Monos (auto) (0-0.8) 10^3/ul Absolute Eos (auto) (0-0.6) 10^3/ul Absolute Basos (auto) (0-0.2) 10^3/ul Absolute Nucleated RBC 10^3/ul Nucleated RBC % INR (Anticoag Therapy) 1.02 (0.89-1.11) APTT 30.7 (26.0-36.3) seconds D-Dimer, Quantitative 554 H (Less Than 230) ng/mL Sodium (133-145) mmol/L Potassium (3.5-5.0) mmol/L Chloride (101-111) mmol/L Carbon Dioxide (22-32) mmol/L Anion Gap (2-11) mmol/L BUN (6-24) mg/dL Creatinine (0.51-0.95) mg/dL Est GFR ( Amer) (>60) Est GFR (Non-Af Amer) (>60) BUN/Creatinine Ratio (8-20) Glucose (70-100) mg/dL Lactic Acid (0.5-2.0) mmol/L Calcium (8.6-10.3) mg/dL Magnesium (1.9-2.7) mg/dL Total Bilirubin (0.2-1.0) mg/dL AST (13-39) U/L ALT (7-52) U/L Alkaline Phosphatase (34-104) U/L Troponin I (<0.04) ng/mL C-Reactive Protein (< 5.00) mg/L B-Natriuretic Peptide 169 H ( - 100) pg/mL Total Protein (6.4-8.9) g/dL Albumin (3.2-5.2) g/dL Globulin (2-4) g/dL Albumin/Globulin Ratio (1-3) Procalcitonin 0.9 H (<0.6) ng/mL TSH (0.34-5.60) mcIU/mL Microbiology and Other Data: Microbiology 08/14/16 18:00 Urine Culture - Final Urine No Growth (<1,000 CFU/mL) Assess/Plan/Problems-Billing Ms Scott is an 81 yo F who has a h/o HTN who presented to the ER with c/o dyspnea and was ultimately found to have massive pleural thickening on the left. - Patient Problems (1) Pleural thickening Current Visit: Yes Status: Acute Comment: Pt denies any history of asbestosis exposure. She has unilateral pleural thickening and will be undergoing pleural biopsy later this afternoon. ? malignancy vs post infectious. Will get the biopsy and then plan on further evaluation. Will get pulmonary evaluation for possible restrictive lung disease given the extensive pleural thickening on the left. (2) Anemia Current Visit: Yes Status: Acute Code(s): D64.9 - ANEMIA, UNSPECIFIED SNOMED Code(s): 714412008 Comment: Unclear what the patient's baseline H/H is. Will try to get records from her PCP. Will send iron, B12 studies. H/H remains stable. (3) HTN (hypertension) Current Visit: Yes Status: Acute Code(s): I10 - ESSENTIAL (PRIMARY) HYPERTENSION SNOMED Code(s): 71449969 Comment: BP is under fair control despite holding her HCTZ. (4) Weakness Current Visit: Yes Status: Acute Code(s): R53.1 - WEAKNESS SNOMED Code(s) : 22653673 Comment: PT eval pending. I suspect her weakness is related to the pulmonary process that is currently being evaluated. (5) DVT prophylaxis Current Visit: Yes Status: Acute Code(s): OQD2364 - SNOMED Code(s): 203195136 Comment: lovenox-on hold for pleural biopsy (6) Full code status Current Visit: Yes Status: Acute Code(s): Z78.9 - OTHER SPECIFIED HEALTH STATUS SNOMED Code(s): 263898189
[2016-08-16] MEDS ORDERED: fentaNYL* 50 MCG/ML 2 ML VIAL (100 MCG VIAL) ONE (14:32)
--- NOTE | 2016-08-16 15:30 | ECHO ---
Patient: KWABENA FLORES [facility] Rec#: [id number] : 1935 Date: 08/16/2016 Age: 81y Height: 165.1 cm / 65.0 in Weight: 53.07 kg / 117.0 lbs Sex: F BSA: 1.58 Room#: [facility] Admit Date#: 08/14/2016 Type: Inpatient Referring: Cheyenne Pardo Reading: Fernando Sanchez MD Applications Analyst: Janett BairesKAVITHA CC: Jt Almaguer MD Transthoracic Echocardiogram Indication: SOB, pleural effusion BP: 135/58 HR: 88 Rhythm: NSR Indications Shortness of Breath Findings History: HTN. Technical Comments: The study quality is fair. Completed at 1230. Left Ventricle: The left ventricular chamber size is normal. Mild to moderate concentric left ventricular hypertrophy is observed. There is a prominent septal knuckle. Global left ventricular wall motion and contractility are within normal limits. The left ventricle appears hyperdynamic. The estimated ejection fraction is greater than 65%. There is no consistent Doppler evidence of clinically significant diastolic dysfunction. Left Atrium: The left atrium is moderately dilated. Right Ventricle: Moderator Band present. The right ventricular cavity size is normal. The right ventricular global systolic function is normal. Right Atrium: The right atrial cavity size is normal. Aortic Valve: The aortic valve is trileaflet. Moderate aortic leaflet calcification is visualized. There is a trace of aortic regurgitation. There is moderate aortic stenosis. The mean gradient of the aortic valve is 15.49 mmHg. The peak instantaneous gradient of the aortic valve is 26.84 mmHg. The aortic valve area, by peak velocities, is calculated at 0.98 cm2. The aortic valve area, by VTI's, is calculated at 1.11 cm2. Mitral Valve: There is mitral annular calcification. The mitral valve leaflets are moderately thickened. There is trace to mild mitral regurgitation. There is no evidence of mitral stenosis. Tricuspid Valve: The tricuspid valve leaflets are mildly thickened. There is mild tricuspid regurgitation. The right ventricular systolic pressure is estimated at 28 mmHg. No pulmonary hypertension is noted. There is no tricuspid stenosis. Pulmonic Valve: The pulmonic valve appears normal. There is mild pulmonic regurgitation. There is no pulmonic stenosis. Pericardium: A trivial pericardial effusion is visualized. There are no signs of significant hemodynamic compromise. A left pleural effusion is present. Aorta: There is no dilatation of the ascending aorta. There is no dilatation of the aortic arch. There is no dilation of the aortic root. Pulmonary Artery: The main pulmonary artery appears normal. Venous: The inferior vena cava appears normal in size. There is a greater than 50% respiratory change in the inferior vena cava dimension. Summary: There was not any prior study for comparison. Conclusions Mild to moderate concentric left ventricular hypertrophy is observed. The estimated ejection fraction is greater than 65%. The left ventricle appears hyperdynamic. The right ventricular global systolic function is normal. There is a trace of aortic regurgitation. There is moderate aortic stenosis. There is trace to mild mitral regurgitation. There is mild tricuspid regurgitation. The right ventricular systolic pressure is estimated at 28 mmHg. A trivial pericardial effusion is visualized. Measurements Name Value Normal Range RVIDd (AP) 2D 1.9 cm (0.9 - 2.6) RVDdMajor (2D) 3.1 cm (2.2 - 4.4) RAd ISD 4CH 4.5 cm (3.4 - 4.9) RA (A4C)W 3.6 cm (2.9 - 4.6) IVSd (2D) 1.2 cm (0.6 - 1) LVPWd (2D) 1.2 cm (0.6 - 1) LVIDd (2D) 4 cm (3.6 - 5.4) LVIDs (2D) 2.6 cm - LV FS (2D) 35 % (25 - 45) Aortic Annulus 1.8 cm (1.4 - 2.6) Ao root diameter (2D) 2.8 cm (2.1 - 3.5) Ascending Ao 3 cm (2.1 - 3.4) Aortic arch 2.7 cm (1.8 - 3.4) LA dimension (AP) 2D 4.1 cm (2.3 - 3.8) LAd ISD 4CH 5.2 cm (2.9 - 5.3) LA ISD 4CH W 4.1 cm (2.5 - 4.5) Name Value Normal Range LA ESV SP 4CH (A/L) 58 ml - LA ESV SP 2CH (A/L) 79 ml - LA ESV BP (A/L) 71 ml - LA ESV BP (A/L) index 45.02 ml/m2 - LA ESV SP 4CH (MOD) 52 ml - LA ESV SP 2CH (MOD) 76 ml - Name Value Normal Range MV E-wave Vmax 1.13 m/sec - MV deceleration time 183.8 msec - MV A-wave Vmax 1 m/sec - MV E:A ratio 1.12 ratio - LV septal e' Vmax 0.05 m/sec - LV lateral e' Vmax 0.04 m/sec - LV E:e' septal ratio 22.6 ratio - LV E:e' lateral ratio 28.25 ratio - Name Value Normal Range AV Vmax 2.6 m/sec - AV VTI 53.6 cm - AV peak gradient 26.84 mmHg - AV mean gradient 15.49 mmHg - LVOT diameter 2 cm - LVOT Vmax 0.81 m/sec - LVOT VTI 18.91 cm - LVOT peak gradient 2.65 mmHg - LVOT mean gradient 1.94 mmHg - DOI (VTI) 0.35 ratio - BRIAN (continuity Vmax) 0.98 cm2 - BRIAN (continuity VTI) 1.11 cm2 - SHAYE Vmax 0.5 m/sec - Name Value Normal Range TR Vmax 2.5 m/sec - TR peak gradient 25 mmHg - RAP 3 mmHg - RVSP 28 mmHg - IVC diameter 1.5 cm - Name Value Normal Range PV Vmax 0.93 m/sec - PV peak gradient 3.43 mmHg -
--- NOTE | 2016-08-16 18:05 | RAD ---
CPT II Codes: 6100F INDICATION: Circumferential left-sided pleural thickening COMPARISON: CT of the chest dated August 14, 2016 The benefits and risks of procedure explained to the patient and the patient signed informed consent. Multiple images of the posterior left hemithorax were obtained. The pleural soft tissue thickening in question was identified and a percutaneous tract was determined. A time out was performed before beginning the procedure. The patient was prepped and draped in the usual sterile fashion. The skin and tissue overlying the soft tissue pleural thickening were anesthetized with 1% lidocaine. Percutaneously, a fine needle aspiration was obtained and provided to the attending cytopathologist. According to the same technique a second fine-needle aspiration was acquired. Upon the attending pathologist request core biopsy was obtained according to the same sonographically guided technique with an 18-gauge Temno needle. This yielded 2 core samples that were placed in formalin and provided to the electronics engineering technologist. The post procedure ultrasound demonstrates no evidence for hematoma. The site was dressed with a sterile dressing. The patient tolerated procedure well without incident. IMPRESSION: Uncomplicated ultrasound-guided fine-needle aspiration and core biopsy of left-sided pleural thickening at the posterior left lung base.
--- NOTE | 2016-08-16 19:25 | RAD ---
INDICATION: Concern for pneumothorax status post left pleural biopsy COMPARISON: Chest x-ray August 14, 2016 TECHNIQUE: Single AP portable view of the chest was obtained. FINDINGS: Image quality is compromised due to the relative inferiority of a portable chest x-ray. Again seen is obscuration of much of the left lower lung with patchy density obscuring the mid-level and upper left lung. There is no large pneumothorax. The right lung is adequately aerated. Again seen is mild cardiomegaly with coarse atherosclerotic calcification overlying the arch of the aorta. IMPRESSION: Persistent density obscuring much of the left lung unchanged from the August 14, 2016 chest x-ray. There is no definite left-sided pneumothorax.
--- NOTE | 2016-08-16 20:47 | PN ---
Progress Note - Progress Note Date of Service: 08/16/16 Note: Called to bedside by Primary RN out of concern for right sided weakness and tachypnea. On exam, patient does evidence subtle right sided weakness in her arm and leg. She denies complaint. Plan for CT brain now with q2 neuro checks overnight. In terms of tachypnea, patient is evidencing some intermittent rapid shallow breathing but is in no respiratory distress and is not hypoxic. I suspect this is related to her pleural process which is currently under investigation with pleural biopsy performed today. Plan to continue to observe and apply oxygen as needed.
--- NOTE | 2016-08-16 21:21 | RAD ---
INDICATION: Right-sided weakness COMPARISON: CT of the brain dated August 14, 2016 TECHNIQUE: Contiguous axial sections of the brain were obtained from the skull base to the vertex without contrast. FINDINGS: The ventricles, cisterns and sulci exhibit a mild degree of age-appropriate involutional change. In the white matter tract of the left frontal lobe (image 14 of 32) there is a focal 9 mm hypoattenuation. Elsewhere there is a very mild degree of periventricular and subcortical white matter hypoattenuation more consistent with chronic microvascular disease. Otherwise the campbell-white matter differentiation is adequately maintained and there is no sulcal effacement. No significant focal abnormality or mass effect is present. There is no evidence for intracranial hemorrhage. No significant focal osseous abnormality is present. The visualized portion of the paranasal sinuses and mastoid air cells appear clear. IMPRESSION: In the periventricular white matter of the left frontal lobe there is a focal 9 mm hypoattenuation. This considerably represent a more confluent area of microvascular disease, or alternatively a metastasis. If clinically warranted further characterization can be made with MRI of the brain with contrast.
--- NOTE | 2016-08-16 22:29 | CONS ---
PULMONARY CONSULTATION REPORT: DATE OF CONSULTATION: 08/16/16 REQUESTING PHYSICIAN: Dr. Haider REASON FOR CONSULTATION: Evaluation of abnormal CT chest. HISTORY OF PRESENT ILLNESS: The patient is an 81-year-old female with a history of hypertension, who presented to the emergency room a few days ago for evaluation of worsening shortness of breath and generalized weakness affecting her lower extremities. The patient is a poor historian. As per the patient, she has been having progressively worsening weakness in her lower extremity and inability to stand. The patient also reports tripping and falling recently. The patient also reports significant weight loss recently. The patient reports losing 5 to 10 pounds every month over the past 3 months. The patient also reports poor appetite. The patient denies fevers or chills. She reports night sweats recently. The patient reports that all these symptoms started with URI 1 month ago. The patient denies syncopal episodes, constipation, headaches. The patient reports diarrhea recently. She denied chest pain, lower extremity edema, palpitations, hemoptysis. She also reported mild intermittent cough, mostly dry in nature. Denied any skin lesions or rashes. The patient was seen in [facility] and was referred to the ED for tachycardia and elevated blood pressure. The patient had CT of the brain, which was negative for any pathology. Her EKG showed sinus tachycardia and left ventricular hypertrophy picture. Her chest x-ray showed pleural thickening for which she underwent CT scan of the chest for further evaluation. I have personally reviewed CT scan of the chest. The patient is noted to have pleural thickening and nodularity in the left hemithorax. The patient also with mediastinal and enlarged pericardial lymph node. The patient denied any lung problems in the past. The patient reported having pneumonia a few years ago. The patient has lived in [place] and she also lived in [place] for 10 years. The patient has not worked while she was in [place]. She denied having any pulmonary illness while she was there. The patient denied any prior exposure to TB. The patient reports secondhand smoke exposure when she was working. PAST MEDICAL HISTORY: Hypertension. HOME MEDICATION: Hydrochlorothiazide 25 mg daily. ALLERGIES: PENICILLIN. FAMILY HISTORY: The patient is unaware of family medical history. SOCIAL HISTORY: Denies tobacco abuse, had secondhand smoke exposure. The patient occasionally drinks alcohol, about 1 to 2 glasses of wine a day. The patient denies drug abuse. 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 REVIEW OF SYSTEMS: All 14 systems were reviewed and are as per HPI. PHYSICAL EXAMINATION: The patient is in a chair, in no apparent distress. Vital Signs: Temperature 98, pulse 98 beats per minute, respiratory 28 per minute, O2 sat 97% on room air, blood pressure 137/56. HEENT: Pupils are equal , reactive to light. Mucous membranes are moist. Neck: Supple. No JVD. Respiratory: Good air entry bilaterally, mildly decreased aeration on the left , no wheeze. Cardiovascular: S1, S2 present, regular. A systolic murmur present. Musculoskeletal: Normal range of motion. No cyanosis or clubbing. Skin: Has some abrasions in the right arm from recent fall. Neurologic: No focal deficits. DIAGNOSTIC STUDIES/LAB DATA: Laboratory exam reveals WBC count of 7.3, hemoglobin of 9.8, hematocrit of 30, and platelet count of 374. D-dimer was elevated. Sodium 134, potassium 4.1, chloride 103, bicarb 25, BUN 14, creatinine 0.48. BNP 169. UA showed trace leukocyte esterase. CTA of the chest as described above in the HPI. IMPRESSION/RECOMMENDATIONS: 81-year-old female, nonsmoker, admitted with generalized weakness, shortness of breath, found to have pleural thickening on the left along with nodularity of the pleura. Infectious versus inflammatory versus malignant. The patient reported URI symptoms about a month ago, ? loculated effusion on that side. However, given her age, prior secondhand smoke exposure, and having lived in [place] before, would need to evaluate for malignancy or other infectious causes like TB. The patient is scheduled for ultrasound-guided pleural biopsy today. Will await pleural biopsy results. The patient is currently being treated with antibiotics. If pleural biopsy is suggestive of infectious etiology, will need surgical evaluation. Blood cultures negative to date. Thank you for allowing me to participate in the care of your patient. Will follow up with you. [id number]/[facility] #: [id number] ADEBAYO
[2016-08-17] MEDS: Metoprolol Tartrate TAB* 25 MG PO SCH ×2 (08:11→19:19)
--- NOTE | 2016-08-17 11:09 | PN ---
Subjective Date of Service: 08/17/16 Interval History: Pt is feeling quite good today. She states her breathing is back to baseline. She states the procedure yesterday was not too bad. Last night she had an episode of R sided weakness. Her grandson questions if her symptoms may have been related to the sedation she received earlier in the day for her pleural biopsy and being tired and not having ate much all day. This AM he feels that she is much sharper and he has not noticed any of the weakness. Objective Active Medications: Metoprolol Tartrate (Lopressor Tab*) 50 mg PO BID MAURICIO Last Admin: 08/17/16 08:11 Dose: 50 mg Vital Signs 08/16/16 08/16/16 08/16/16 11:25 15:30 16:00 Temperature 98.0 F 98.4 F Pulse Rate 91 98 Respiratory 28 30 Rate Blood Pressure 138/55 137/56 (mmHg) O2 Sat by Pulse 97 97 97 Oximetry 08/16/16 08/16/16 08/16/16 18:57 19:59 20:00 Temperature 97.3 F Pulse Rate 104 Respiratory 20 38 38 Rate Blood Pressure 133/55 (mmHg) O2 Sat by Pulse 97 97 Oximetry 08/16/16 08/16/16 08/16/16 23:32 23:39 23:50 Temperature 98.5 F Pulse Rate 96 Respiratory 26 Rate Blood Pressure 126/96 128/52 (mmHg) O2 Sat by Pulse 96 96 Oximetry 08/17/16 08/17/16 08/17/16 03:27 07:35 08:00 Temperature 98.0 F 99.0 F Pulse Rate 90 103 Respiratory 16 16 16 Rate Blood Pressure 134/62 139/61 (mmHg) O2 Sat by Pulse 98 96 Oximetry 08/17/16 09:00 Temperature Pulse Rate Respiratory Rate Blood Pressure (mmHg) O2 Sat by Pulse 95 Oximetry Oxygen Devices in Use Now: None Appearance: Elderly female sitting up in bed, NAD Eyes: No Scleral Icterus Ears/Nose/Mouth/Throat: Mucous Membranes Moist Respiratory: Symmetrical Chest Expansion and Respiratory Effort, Clear to Auscultation - markedly diminished breath sounds on the L, R CTA Cardiovascular: NL Sounds; No Murmurs; No JVD, RRR, No Edema Abdominal: NL Sounds; No Tenderness; No Distention Extremities: No Clubbing, Cyanosis Skin: No Rash or Ulcers, No Nodules or Sclerosis Neurological: Alert and Oriented x 3, - - slow to respond to questions but unchanged from yesterday, no significant facial droop, no dysarthria, UE/LE strength 5/5 bilaterally Result Diagrams: 08/15/16 05:08 08/16/16 05:36 Additional Lab and Data: Lab Results 08/14/16 08/14/16 08/14/16 Range/Units 15:10 15:10 15:10 WBC 9.9 (3.5-10.8) 10^3/ul RBC 3.76 L (4.0-5.4) 10^6/ul Hgb 9.9 L (12.0-16.0) g/dl Hct 31 L (35-47) % MCV 83 (80-97) fL MCH 26 L (27-31) pg MCHC 32 (31-36) g/dl RDW 16 H (10.5-15) % Plt Count 392 (150-450) 10^3/ul MPV 7 L (7.4-10.4) um3 Neut % (Auto) 72.4 (38-83) % Lymph % (Auto) 15.3 L (25-47) % [place] % (Auto) 10.8 H (1-9) % Eos % (Auto) 0.8 (0-6) % Baso % (Auto) 0.7 (0-2) % Absolute Neuts (auto) 7.1 (1.5-7.7) 10^3/ul Absolute Lymphs (auto) 1.5 (1.0-4.8) 10^3/ul Absolute Monos (auto) 1.1 H (0-0.8) 10^3/ul Absolute Eos (auto) 0.1 (0-0.6) 10^3/ul Absolute Basos (auto) 0.1 (0-0.2) 10^3/ul Absolute Nucleated RBC 0 10^3/ul Nucleated RBC % 0 INR (Anticoag Therapy) (0.89-1.11) APTT (26.0-36.3) seconds D-Dimer, Quantitative (Less Than 230) ng/mL Sodium 133 (133-145) mmol/L Potassium 4.0 (3.5-5.0) mmol/L Chloride 99 L (101-111) mmol/L Carbon Dioxide 25 (22-32) mmol/L Anion Gap 9 (2-11) mmol/L BUN 17 (6-24) mg/dL Creatinine 0.52 (0.51-0.95) mg/dL Est GFR ( Amer) 145.2 (>60) Est GFR (Non-Af Amer) 112.9 (>60) BUN/Creatinine Ratio 32.7 H (8-20) Glucose 80 (70-100) mg/dL Lactic Acid 1.1 (0.5-2.0) mmol/L Calcium 9.3 (8.6-10.3) mg/dL Magnesium 1.9 (1.9-2.7) mg/dL Total Bilirubin 0.50 (0.2-1.0) mg/dL AST 21 (13-39) U/L ALT 11 (7-52) U/L Alkaline Phosphatase 84 (34-104) U/L Troponin I 0.01 (<0.04) ng/mL C-Reactive Protein 222.68 H (< 5.00) mg/L B-Natriuretic Peptide ( - 100) pg/mL Total Protein 7.3 (6.4-8.9) g/dL Albumin 3.1 L (3.2-5.2) g/dL Globulin 4.2 H (2-4) g/dL Albumin/Globulin Ratio 0.7 L (1-3) Procalcitonin (<0.6) ng/mL TSH 3.70 (0.34-5.60) mcIU/mL 08/14/16 08/14/16 08/14/16 Range/Units 15:10 15:10 15:50 WBC (3.5-10.8) 10^3/ul RBC (4.0-5.4) 10^6/ul Hgb (12.0-16.0) g/dl Hct (35-47) % MCV (80-97) fL MCH (27-31) pg MCHC (31-36) g/dl RDW (10.5-15) % Plt Count (150-450) 10^3/ul MPV (7.4-10.4) um3 Neut % (Auto) (38-83) % Lymph % (Auto) (25-47) % [place] % (Auto) (1-9) % Eos % (Auto) (0-6) % Baso % (Auto) (0-2) % Absolute Neuts (auto) (1.5-7.7) 10^3/ul Absolute Lymphs (auto) (1.0-4.8) 10^3/ul Absolute Monos (auto) (0-0.8) 10^3/ul Absolute Eos (auto) (0-0.6) 10^3/ul Absolute Basos (auto) (0-0.2) 10^3/ul Absolute Nucleated RBC 10^3/ul Nucleated RBC % INR (Anticoag Therapy) 1.02 (0.89-1.11) APTT 30.7 (26.0-36.3) seconds D-Dimer, Quantitative 554 H (Less Than 230) ng/mL Sodium (133-145) mmol/L Potassium (3.5-5.0) mmol/L Chloride (101-111) mmol/L Carbon Dioxide (22-32) mmol/L Anion Gap (2-11) mmol/L BUN (6-24) mg/dL Creatinine (0.51-0.95) mg/dL Est GFR ( Amer) (>60) Est GFR (Non-Af Amer) (>60) BUN/Creatinine Ratio (8-20) Glucose (70-100) mg/dL Lactic Acid (0.5-2.0) mmol/L Calcium (8.6-10.3) mg/dL Magnesium (1.9-2.7) mg/dL Total Bilirubin (0.2-1.0) mg/dL AST (13-39) U/L ALT (7-52) U/L Alkaline Phosphatase (34-104) U/L Troponin I (<0.04) ng/mL C-Reactive Protein (< 5.00) mg/L B-Natriuretic Peptide 169 H ( - 100) pg/mL Total Protein (6.4-8.9) g/dL Albumin (3.2-5.2) g/dL Globulin (2-4) g/dL Albumin/Globulin Ratio (1-3) Procalcitonin 0.9 H (<0.6) ng/mL TSH (0.34-5.60) mcIU/mL Microbiology and Other Data: Microbiology 08/14/16 18:00 Urine Culture - Final Urine No Growth (<1,000 CFU/mL) Assess/Plan/Problems-Billing Ms Scott is an 81 yo F who has a h/o HTN who presented to the ER with c/o dyspnea and was ultimately found to have massive pleural thickening on the left. - Patient Problems (1) Pleural thickening Current Visit: Yes Status: Acute Comment: Pleural biopsy done yesterday and pathology results are pending. Differential still includes malignancy, inflammatory, infectious. Appreciate pulmonary consult-no PFTs at this time. She may be able to be d/ciera then follow up when the results of the biopsy are back. (2) Anemia Current Visit: Yes Status: Acute Code(s): D64.9 - ANEMIA, UNSPECIFIED SNOMED Code(s): 196363917 Comment: ? anemia of chronic disease and possible B12 deficiency. Will start B12 supplementation. (3) HTN (hypertension) Current Visit: Yes Status: Acute Code(s): I10 - ESSENTIAL (PRIMARY) HYPERTENSION SNOMED Code(s): 10145182 Comment: BP is under good control on metoprolol 50mg BID. (4) Weakness Current Visit: Yes Status: Acute Code(s): R53.1 - WEAKNESS SNOMED Code(s) : 45369077 Comment: PT eval pending. I suspect her generalized weakness is related to the pulmonary process that is currently being evaluated. Last night there were concerns of R sided weakness-CT Brain negative. Today her strength feels equal. Continue neuro checks but reduce frequency to q4hr. (5) DVT prophylaxis Current Visit: Yes Status: Acute Code(s): XLL5287 - SNOMED Code(s): 752069385 Comment: lovenox (6) Full code status Current Visit: Yes Status: Acute Code(s): Z78.9 - OTHER SPECIFIED HEALTH STATUS SNOMED Code(s): 775277150
[2016-08-17] MEDS: Enoxaparin(*) 40 MG/0.4 ML SYR SUBCUT SCH (11:59)
[2016-08-18] MEDS: Cyanocobalamin TAB* 500 MCG PO SCH (09:01)
[2016-08-18] MEDS: Metoprolol Tartrate TAB* 25 MG PO SCH (09:03)
--- NOTE | 2016-08-18 09:51 | PN ---
Subjective Date of Service: 08/18/16 Interval History: Pt is feeling ok. She states her breathing is comfortable. She has no pain. She states that she has been having soft stools since being in the hospital. She is going about 2-3x/day. Objective Active Medications: Cyanocobalamin (Vitamin B12 Tab*) 1,000 mcg PO DAILY [facility] Last Admin: 08/18/16 09:01 Dose: 1,000 mcg Enoxaparin Sodium (Lovenox(*)) 40 mg SUBCUT Q24H [facility] Last Admin: 08/17/16 11:59 Dose: 40 mg Metoprolol Tartrate (Lopressor Tab*) 50 mg PO BID [facility] Last Admin: 08/18/16 09:03 Dose: 50 mg Vital Signs 08/17/16 08/17/16 08/17/16 11:13 15:32 18:08 Temperature 97.5 F 97.6 F Pulse Rate 93 97 Respiratory 16 16 20 Rate Blood Pressure 132/59 129/54 (mmHg) O2 Sat by Pulse 95 95 Oximetry 08/17/16 08/17/16 08/17/16 19:12 20:52 22:58 Temperature 97.9 F Pulse Rate 102 Respiratory 16 Rate Blood Pressure 134/59 (mmHg) O2 Sat by Pulse 98 92 92 Oximetry 08/17/16 08/18/16 08/18/16 23:37 04:38 07:15 Temperature 98.2 F 99.0 F Pulse Rate 91 110 Respiratory 20 20 20 Rate Blood Pressure 120/57 138/47 (mmHg) O2 Sat by Pulse 94 92 92 Oximetry 08/18/16 07:56 Temperature 98.4 F Pulse Rate 121 Respiratory 16 Rate Blood Pressure 150/60 (mmHg) O2 Sat by Pulse 100 Oximetry Oxygen Devices in Use Now: None Appearance: Elderly female sitting up in a chair, NAD Eyes: No Scleral Icterus Ears/Nose/Mouth/Throat: Mucous Membranes Moist Respiratory: Symmetrical Chest Expansion and Respiratory Effort, Clear to Auscultation - markedly diminished breath sounds in L lung Cardiovascular: NL Sounds; No Murmurs; No JVD, RRR, No Edema Abdominal: NL Sounds; No Tenderness; No Distention Extremities: No Clubbing, Cyanosis Skin: No Rash or Ulcers, No Nodules or Sclerosis Neurological: - - slow to respond to questions Result Diagrams: 08/15/16 05:08 08/16/16 05:36 Additional Lab and Data: Lab Results 08/14/16 08/14/16 08/14/16 Range/Units 15:10 15:10 15:10 WBC 9.9 (3.5-10.8) 10^3/ul RBC 3.76 L (4.0-5.4) 10^6/ul Hgb 9.9 L (12.0-16.0) g/dl Hct 31 L (35-47) % MCV 83 (80-97) fL MCH 26 L (27-31) pg MCHC 32 (31-36) g/dl RDW 16 H (10.5-15) % Plt Count 392 (150-450) 10^3/ul MPV 7 L (7.4-10.4) um3 Neut % (Auto) 72.4 (38-83) % Lymph % (Auto) 15.3 L (25-47) % [place] % (Auto) 10.8 H (1-9) % Eos % (Auto) 0.8 (0-6) % Baso % (Auto) 0.7 (0-2) % Absolute Neuts (auto) 7.1 (1.5-7.7) 10^3/ul Absolute Lymphs (auto) 1.5 (1.0-4.8) 10^3/ul Absolute Monos (auto) 1.1 H (0-0.8) 10^3/ul Absolute Eos (auto) 0.1 (0-0.6) 10^3/ul Absolute Basos (auto) 0.1 (0-0.2) 10^3/ul Absolute Nucleated RBC 0 10^3/ul Nucleated RBC % 0 INR (Anticoag Therapy) (0.89-1.11) APTT (26.0-36.3) seconds D-Dimer, Quantitative (Less Than 230) ng/mL Sodium 133 (133-145) mmol/L Potassium 4.0 (3.5-5.0) mmol/L Chloride 99 L (101-111) mmol/L Carbon Dioxide 25 (22-32) mmol/L Anion Gap 9 (2-11) mmol/L BUN 17 (6-24) mg/dL Creatinine 0.52 (0.51-0.95) mg/dL Est GFR ( Amer) 145.2 (>60) Est GFR (Non-Af Amer) 112.9 (>60) BUN/Creatinine Ratio 32.7 H (8-20) Glucose 80 (70-100) mg/dL Lactic Acid 1.1 (0.5-2.0) mmol/L Calcium 9.3 (8.6-10.3) mg/dL Magnesium 1.9 (1.9-2.7) mg/dL Total Bilirubin 0.50 (0.2-1.0) mg/dL AST 21 (13-39) U/L ALT 11 (7-52) U/L Alkaline Phosphatase 84 (34-104) U/L Troponin I 0.01 (<0.04) ng/mL C-Reactive Protein 222.68 H (< 5.00) mg/L B-Natriuretic Peptide ( - 100) pg/mL Total Protein 7.3 (6.4-8.9) g/dL Albumin 3.1 L (3.2-5.2) g/dL Globulin 4.2 H (2-4) g/dL Albumin/Globulin Ratio 0.7 L (1-3) Procalcitonin (<0.6) ng/mL TSH 3.70 (0.34-5.60) mcIU/mL 08/14/16 08/14/16 08/14/16 Range/Units 15:10 15:10 15:50 WBC (3.5-10.8) 10^3/ul RBC (4.0-5.4) 10^6/ul Hgb (12.0-16.0) g/dl Hct (35-47) % MCV (80-97) fL MCH (27-31) pg MCHC (31-36) g/dl RDW (10.5-15) % Plt Count (150-450) 10^3/ul MPV (7.4-10.4) um3 Neut % (Auto) (38-83) % Lymph % (Auto) (25-47) % [place] % (Auto) (1-9) % Eos % (Auto) (0-6) % Baso % (Auto) (0-2) % Absolute Neuts (auto) (1.5-7.7) 10^3/ul Absolute Lymphs (auto) (1.0-4.8) 10^3/ul Absolute Monos (auto) (0-0.8) 10^3/ul Absolute Eos (auto) (0-0.6) 10^3/ul Absolute Basos (auto) (0-0.2) 10^3/ul Absolute Nucleated RBC 10^3/ul Nucleated RBC % INR (Anticoag Therapy) 1.02 (0.89-1.11) APTT 30.7 (26.0-36.3) seconds D-Dimer, Quantitative 554 H (Less Than 230) ng/mL Sodium (133-145) mmol/L Potassium (3.5-5.0) mmol/L Chloride (101-111) mmol/L Carbon Dioxide (22-32) mmol/L Anion Gap (2-11) mmol/L BUN (6-24) mg/dL Creatinine (0.51-0.95) mg/dL Est GFR ( Amer) (>60) Est GFR (Non-Af Amer) (>60) BUN/Creatinine Ratio (8-20) Glucose (70-100) mg/dL Lactic Acid (0.5-2.0) mmol/L Calcium (8.6-10.3) mg/dL Magnesium (1.9-2.7) mg/dL Total Bilirubin (0.2-1.0) mg/dL AST (13-39) U/L ALT (7-52) U/L Alkaline Phosphatase (34-104) U/L Troponin I (<0.04) ng/mL C-Reactive Protein (< 5.00) mg/L B-Natriuretic Peptide 169 H ( - 100) pg/mL Total Protein (6.4-8.9) g/dL Albumin (3.2-5.2) g/dL Globulin (2-4) g/dL Albumin/Globulin Ratio (1-3) Procalcitonin 0.9 H (<0.6) ng/mL TSH (0.34-5.60) mcIU/mL Microbiology and Other Data: Microbiology 08/14/16 18:00 Urine Culture - Final Urine No Growth (<1,000 CFU/mL) Assess/Plan/Problems-Billing Ms Scott is an 81 yo F who has a h/o HTN who presented to the ER with c/o dyspnea and was ultimately found to have massive pleural thickening on the left. - Patient Problems (1) Pleural thickening Current Visit: Yes Status: Acute Comment: Verbal report from the pathologist last night was that the pleural biopsy showed malignant mesothelioma. Oncology evaluation to happen today. (2) Anemia Current Visit: Yes Status: Acute Code(s): D64.9 - ANEMIA, UNSPECIFIED SNOMED Code(s): 208997990 Comment: Likely anemia of chronic disease (secondary to malignancy) and possible B12 deficiency. Continue B12 supplemenation. (3) HTN (hypertension) Current Visit: Yes Status: Acute Code(s): I10 - ESSENTIAL (PRIMARY) HYPERTENSION SNOMED Code(s): 52951236 Comment: BP is under fair control on metoprolol 50mg BID. Increase to 50mg TID for better HR and BP control. (4) Weakness Current Visit: Yes Status: Acute Code(s): R53.1 - WEAKNESS SNOMED Code(s) : 12537150 Comment: At this time pt is refusing STR. Will continue to try to encourage the patient to try rehab. (5) DVT prophylaxis Current Visit: Yes Status: Acute Code(s): UYZ3974 - SNOMED Code(s): 801662262 Comment: lovenox (6) Full code status Current Visit: Yes Status: Acute Code(s): Z78.9 - OTHER SPECIFIED HEALTH STATUS SNOMED Code(s): 722366841
[2016-08-18] MEDS: Enoxaparin(*) 40 MG/0.4 ML SYR SUBCUT SCH (12:33)
--- NOTE | 2016-08-18 13:27 | PN ---
Progress Note - Progress Note Date of Service: 08/18/16 - Pulm follow-up note Note: Pt seen and examined at bedside. Pt reports poor appetite and gen weakness. Grand daughter at bedside reports that pt eats poorly.No other complaints. Schley biopsy results from oncology and is sad Active Medications Generic Name Dose Route Start Last Admin Trade Name Lesvia PRN Reason Stop Dose Admin Cyanocobalamin 1,000 mcg 08/18/16 09:00 08/18/16 09:01 Vitamin B12 Tab* PO 1,000 mcg DAILY [facility] Administration Enoxaparin Sodium 40 mg 08/17/16 12:00 08/18/16 12:33 Lovenox(*) SUBCUT 40 mg Q24H [facility] Administration Metoprolol Tartrate 50 mg 08/18/16 14:00 Lopressor Tab* PO TID [facility] Vital Signs Temp Pulse Resp BP Pulse Ox 98.4 F 121 16 150/60 100 08/18/16 07:56 08/18/16 07:56 08/18/16 07:56 08/18/16 07:56 08/18/16 07:56 Gen: Pt in NAD, thin appearing HEENT: No Scleral Icterus, Mucous Membranes Moist Respiratory: Symmetrical Chest Expansion and Respiratory Effort, Clear to Auscultation, diminished breath sounds in Left lung Cardiovascular: NL Sounds; No Murmurs; No JVD, RRR, No Edema Abdominal: NL Sounds; No Tenderness; No Distention Extremities: No Clubbing, Cyanosis Skin: No Rash or Ulcers, No Nodules or Sclerosis Neurological: alert, awake,no focal defecits Pathology:Pleural biopsy positive for malignant mesothelioma I/R: 81 y o f life long non-smoker with no knownh/o asbestosis exposure presents for SOB, gen weakness found to have pleural nodularity and thickening on left side s/pultrasound guided pleural biopsy positive for malignant mesothelioma Pt aware of diagnosis Was seen by oncology today Further management as per oncology Pt receiving PT/OT
--- NOTE | 2016-08-18 15:03 | CONS ---
CONSULTATION REPORT: DATE OF CONSULT: 08/18/16 REFERRING PHYSICIAN: Dr. Haider. PRIMARY CARE PHYSICIAN: Dr. Almaguer. PULMONARY: Dr. Umana. REASON FOR CONSULT: Mesothelioma. HISTORY OF PRESENT ILLNESS: An 81-year-old female. History from patient as well as her [id number]. She has had several months of weight loss secondary to low appetite, has lost between 15 and 30 pounds. She had generally been doing well otherwise. Her granddaughter saw her several weeks ago in the supermarket and other than looking thin, was doing well. Approximately a week prior to admission, she had progressive symptoms of shortness of breath, weakness in lower extremities, falling. Last Tuesday, she called the ambulance primarily because of shortness of breath. She denies any fevers or chills, she has not been in pain. She has not had palpitations or chest pain. She has not had any swelling in her extremities. On admission, she had a CT angiogram done 08/14/16. No pulmonary embolus; there is diffuse pleural thickening with mass-like lesion extending throughout the pleural surfaces, parietal, mediastinal, diaphragmatic and visceral. The lesion appears locally advanced with invasion into the mediastinal fat. We do not see extensive invasion into the soft tissue, chest wall or pericardium, no extension through the diaphragm but it does seem to involve the diaphragmatic muscle, no invasion into the mediastinal organs or spine and it does seem to be a plane next to the pericardium. Masses on the left, we do not see any disease at this time on the right side. She also had a CT scan of the head with a small frontal lesion of unclear etiology, no other intracranial findings. 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 PAST MEDICAL HISTORY: 1. Hypertension. 2. Osteoarthritis. SURGERIES: Bilateral hip replacement approximately 15 years ago. MEDICATIONS: At this time, 1. B12 tablet 1000 mcg a day. 2. Lovenox subcu 40. 3. Metoprolol 50 t.i.d. ALLERGIES: PENICILLIN. FAMILY HISTORY: No known malignancies. SOCIAL HISTORY: She grew up in [place] and [place], then moved to [facility]. She used to live in a older building in [place]. For the last 10 years, she has been in a trailer. She worked in [employer], [employer] and [employer], but no industrial employment. Her father was an nuclear equipment sales engineer. REVIEW OF SYSTEMS: As described above, 14-point review otherwise negative. PHYSICAL EXAM: She is ill-appearing and weak, lying in bed. Temperature 98.4, BP 150/60, heart rate 116, respirations 12. HEENT: No active dental disease. Mucosa moist. No cervical or supraclavicular lymphadenopathy. Lungs: Decreased breath sounds diffusely in the left. Clear to auscultation in the right. Tachycardic, regular rate and rhythm, S1, S2. Abdomen: Mild distension , no masses, no tenderness. Extremities: Some clubbing. No cyanosis, edema. Musculoskeletal: She needed assistance to sit up on the side of the bed. Neurologic: She is oriented to the hospital, conversive, but a very poor historian. Full exam was not done. DIAGNOSTIC STUDIES/LAB DATA: Hemoglobin 9.8, MCV 83, platelets 374, white count 7.3. Chemistries showed creatinine 0.48, potassium 4.1. Iron sat 9%, ferritin 385. Albumin 3.1. Vitamin B12 of 240. She had a negative urine. CT scan as noted above. ASSESSMENT AND PLAN: An 81-year-old female, new diagnosis of mesothelioma and ECOG performance status of 2. On CT scan, she appears to have T3 disease with extensive unilateral disease but not overtly unresectable. We discussed the diagnosis of mesothelioma. Most patients from this disease. Definitive mcfp therapy involve surgery, but the surgery is very difficult and she would not tolerate it at this time. There may be an option for chemotherapy first, and then if the cancer shrinks and she feels better, can proceed to surgery at a later time. 1. She does need to complete staging studies. We will send CT scan of the abdomen and pelvis either in the hospital or after she is an outpatient. Given questionable findings on the CT scan and her ambiguous mental status, we will check MRI of the brain. 2. Discussed the need to be out of the hospital before she considers treatment. She has a grandson and granddaughter in the area. It is not clear that living with them is a viable option. Her daughter is in [place] and they may be coming up next week. It is possible she move to [place] to live with her children. She has a trailer home but lives alone but at this time does not appear independent. 3. We will have social work supervisor consult and discharge planning. Medically, she is close to being able to go home. 4. Anemia, I agree with oral B12, iron stable. Differential diagnosis is B12 deficiency and chronic disease. 5. Physical Therapy/Occupational Therapy and Nutrition consult to see if we can support her enough to live home on her own. We will continue to follow in the hospital. [id number]/CPS #: [id number] MTDD
[2016-08-18] MEDS: Metoprolol Tartrate TAB* 50 mg PO SCH ×2 (15:07→22:12)
[2016-08-18 16:35] LABS: BUN/Creatinine Ratio 21.8 (8-20); Calcium 9.1 mg/dL (8.6-10.3); EGFR African American 136.1 (>60); EGFR Non-African American 105.8 (>60)
[2016-08-18] MEDS ORDERED: Gadoteridol* (CONTRAST) 279.3 MG/ML 10 ML IV ONE (20:37)
--- NOTE | 2016-08-18 21:32 | RAD ---
INDICATION: Right-sided weakness since August 16, 2016 and a woman with left side pleural thickening. COMPARISON: CT of the brain dated August 16, 2016 that shows confluent hypodensity along the medial left frontal lobe TECHNIQUE: Sagittal T1, axial T1, T2, susceptibility, FLAIR and diffusion-weighted images were obtained. In addition, axial, sagittal and coronal T1-weighted images were obtained following intravenous injection of 10 mL of ProHance contrast. FINDINGS: The ventricles, cisterns and sulci exhibit mild involutional changes appropriate for the patient's age. On the diffusion-weighted images there is long segment and confluent increased signal along the medial margin of the right frontal and anterior parietal lobe. There is corresponding bright signal on the T2-weighted images. In the axial plane this area of increased T2 intensity measures 1.3 x 5.1 cm. There are additional foci of increased T2 hyperintensity without corresponding enhancement on the postcontrast images. Comparing the T1 weighted pre and post contrast images, there is no significant enhancement in this area. The visualized portion of the paranasal sinuses and mastoid air cells appear clear. IMPRESSION: MR findings are most consistent with acute infarction in the distribution of the left anterior cerebral artery.
[2016-08-19] MEDS: Acetaminophen TAB* 325 MG PO PRN ×2 (00:52→19:27)
--- NOTE | 2016-08-19 06:31 | PN ---
Progress Note - Progress Note Date of Service: 08/19/16 Note: Pt was noted to have worsening r weakness by RN on morning neurocheck. On exam pt is a very poor historian, oriented to her age and name, unable to name location, or where she lives, withdrawn, limited speech, but clear. Pt is able to follow simple commands, refuses to stick her tongue out during the exam. Motor: R arm at 4/5 distally and 3/5 proximally R leg 3/5, unable to move toes. left UE and LE at 5/5 Pt appears to have R hemineglect. A/p MRI shows L hemispheric CVA on 08/18/16 ASA started Due to worsening of weakness will obtain CT brain Cont neurochecks PT/OT con. Start gentle IVF
[2016-08-19] MEDS: NS 0.9% 1000 ML* 1,000 ML IV SCH ×2 (07:19→17:11)
[2016-08-19] MEDS: Metoprolol Tartrate TAB* 50 mg PO SCH ×3 (08:14→19:24)
[2016-08-19] MEDS: Cyanocobalamin TAB* 500 MCG PO SCH (08:14)
[2016-08-19] MEDS: Aspirin EC Low Dose* 81 MG TAB.EC PO SCH (08:15)
--- NOTE | 2016-08-19 08:18 | RAD ---
HISTORY: Recent stroke, worsening right-sided weakness COMPARISONS: August 16, 2016, MRI dated August 18, 2016 TECHNIQUE: Multiple contiguous axial CT scans were obtained of the head without intravenous contrast. FINDINGS: HEMORRHAGE/INFARCT: There is hypoattenuation of the left cingulate gyrus anteriorly consistent with subacute nonhemorrhagic infarct corresponding to the restricted diffusion noted on previous MRI. Elsewhere, there is no hemorrhage or acute infarct. MASSES/SHIFT: There is no mass or shift. EXTRA-AXIAL SPACES: There are no extra-axial fluid collections. SULCI AND VENTRICLES: The sulci and ventricles are normal in size and position for the patient's stated age. CEREBRUM: As noted above, there is a subacute nonhemorrhagic infarct of the left cingulate gyrus anteriorly. This is stable from August 16, 2016 examination. BRAINSTEM: There are no focal parenchymal abnormalities. CEREBELLUM: There are no focal parenchymal abnormalities. VESSELS: The vessels are grossly normal. PARANASAL SINUSES: The paranasal sinuses are clear. ORBITS: The orbits are unremarkable. BONES AND SOFT TISSUE: No bone or soft tissue abnormalities are noted. OTHER: None IMPRESSION: AGAIN NOTED IS SUBACUTE NONHEMORRHAGIC INFARCT OF THE ANTERIOR ASPECT OF THE LEFT CENTRAL GYRUS.
--- NOTE | 2016-08-19 09:52 | PN ---
Progress Note - Progress Note Date of Service: 08/19/16 SOAP: Subjective: []She is interactive but not responding to commands for right side. She is responding to left side commands. Not responding to questions consistently. On one word answers denies pain. Acetaminophen (Tylenol Tab*) 650 mg PO Q4H PRN PRN Reason: FEVER/PAIN Last Admin: 08/19/16 00:52 Dose: 650 mg Aspirin (Aspirin Ec Low Dose*) 81 mg PO DAILY [facility] Last Admin: 08/19/16 08:15 Dose: 81 mg Cyanocobalamin (Vitamin B12 Tab*) 1,000 mcg PO DAILY [facility] Last Admin: 08/19/16 08:14 Dose: 1,000 mcg Enoxaparin Sodium (Lovenox(*)) 40 mg SUBCUT Q24H [facility] Last Admin: 08/18/16 12:33 Dose: 40 mg Sodium Chloride (Ns 0.9% 1000 Ml*) 1,000 mls @ 100 mls/hr IV PER RATE [facility] Last Admin: 08/19/16 07:19 Dose: 100 mls/hr Metoprolol Tartrate (Lopressor Tab*) 50 mg PO TID [facility] Last Admin: 08/19/16 08:14 Dose: 50 mg Objective: [] Vital Signs Temp Pulse Resp BP Pulse Ox 98.5 F 96 16 125/45 100 08/19/16 08:03 08/19/16 08:03 08/19/16 08:03 08/19/16 08:03 08/19/16 08:16 HEENT: pale, masked affect Neuro - right side paralysis and appears to have right side neglect. CHANGE from yesterday. Cor -RRR, not in a-fib Decreased BS on right, not taking deep breaths +BS NT/ND No edema and goos pulses. MRI - Acute infarct, LAC. No mets. Reviewed with Dr. Saldaña. Assessment: []81 year old with T3 mesothelioma and now acute CVA. Poor performance status. Plan: []1. Acute CVA. She is now on ASA. Suspect symptoms starting yesterday but has evolved into right hemiparesis. Neurology evaluation today but little intervention anticipated. 2. Mesothelioma. Treatment would be difficulty at 81 with and age appropriate performance status. Given acute CVA it is unclear that any cancer treatment will be possible. Will follow over coming few days and may need to consider hospice on hospital discharge. 3. Will discuss case with social work and with grandson, try and contact daughter in [place].
--- NOTE | 2016-08-19 10:27 | PN ---
Subjective Date of Service: 08/19/16 Interval History: Pt denies pain. She denies SOB. She does not answer questions readily. Objective Active Medications: Acetaminophen (Tylenol Tab*) 650 mg PO Q4H PRN PRN Reason: FEVER/PAIN Last Admin: 08/19/16 00:52 Dose: 650 mg Aspirin (Aspirin Ec Low Dose*) 81 mg PO DAILY [facility] Last Admin: 08/19/16 08:15 Dose: 81 mg Cyanocobalamin (Vitamin B12 Tab*) 1,000 mcg PO DAILY [facility] Last Admin: 08/19/16 08:14 Dose: 1,000 mcg Enoxaparin Sodium (Lovenox(*)) 40 mg SUBCUT Q24H [facility] Last Admin: 08/18/16 12:33 Dose: 40 mg Sodium Chloride (Ns 0.9% 1000 Ml*) 1,000 mls @ 100 mls/hr IV PER RATE [facility] Last Admin: 08/19/16 07:19 Dose: 100 mls/hr Metoprolol Tartrate (Lopressor Tab*) 50 mg PO TID [facility] Last Admin: 08/19/16 08:14 Dose: 50 mg Vital Signs 08/18/16 08/18/16 08/18/16 11:43 15:07 19:42 Temperature 97.3 F 98.8 F 99.8 F Pulse Rate 104 109 112 Respiratory 28 17 16 Rate Blood Pressure 136/62 140/50 142/46 (mmHg) O2 Sat by Pulse 99 94 94 Oximetry 08/18/16 08/18/16 08/19/16 20:00 20:27 00:02 Temperature 100.0 F Pulse Rate 103 Respiratory 18 32 Rate Blood Pressure 144/55 (mmHg) O2 Sat by Pulse 90 93 Oximetry 08/19/16 08/19/16 08/19/16 04:29 08:00 08:03 Temperature 97.3 F 98.5 F Pulse Rate 94 96 Respiratory 16 16 16 Rate Blood Pressure 132/51 125/45 (mmHg) O2 Sat by Pulse 98 100 100 Oximetry 08/19/16 08:16 Temperature Pulse Rate Respiratory Rate Blood Pressure (mmHg) O2 Sat by Pulse 100 Oximetry Oxygen Devices in Use Now: None Appearance: Elderly female sitting up in bed, NAD Eyes: No Scleral Icterus Ears/Nose/Mouth/Throat: Mucous Membranes Moist Respiratory: Symmetrical Chest Expansion and Respiratory Effort, Clear to Auscultation - anteriorly Cardiovascular: NL Sounds; No Murmurs; No JVD, RRR - slightly tachycardic, No Edema Abdominal: NL Sounds; No Tenderness; No Distention Extremities: No Clubbing, Cyanosis Skin: No Rash or Ulcers, No Nodules or Sclerosis Neurological: - - speech is sparse but clear when she does speak, she appears to have R sided neglect, 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 otherwise R UE/LE strength is markedly reduced compared to previous Result Diagrams: 08/15/16 05:08 08/18/16 16:07 Additional Lab and Data: Lab Results 08/14/16 08/14/16 08/14/16 Range/Units 15:10 15:10 15:10 WBC 9.9 (3.5-10.8) 10^3/ul RBC 3.76 L (4.0-5.4) 10^6/ul Hgb 9.9 L (12.0-16.0) g/dl Hct 31 L (35-47) % MCV 83 (80-97) fL MCH 26 L (27-31) pg MCHC 32 (31-36) g/dl RDW 16 H (10.5-15) % Plt Count 392 (150-450) 10^3/ul MPV 7 L (7.4-10.4) um3 Neut % (Auto) 72.4 (38-83) % Lymph % (Auto) 15.3 L (25-47) % Reynolds % (Auto) 10.8 H (1-9) % Eos % (Auto) 0.8 (0-6) % Baso % (Auto) 0.7 (0-2) % Absolute Neuts (auto) 7.1 (1.5-7.7) 10^3/ul Absolute Lymphs (auto) 1.5 (1.0-4.8) 10^3/ul Absolute Monos (auto) 1.1 H (0-0.8) 10^3/ul Absolute Eos (auto) 0.1 (0-0.6) 10^3/ul Absolute Basos (auto) 0.1 (0-0.2) 10^3/ul Absolute Nucleated RBC 0 10^3/ul Nucleated RBC % 0 INR (Anticoag Therapy) (0.89-1.11) APTT (26.0-36.3) seconds D-Dimer, Quantitative (Less Than 230) ng/mL Sodium 133 (133-145) mmol/L Potassium 4.0 (3.5-5.0) mmol/L Chloride 99 L (101-111) mmol/L Carbon Dioxide 25 (22-32) mmol/L Anion Gap 9 (2-11) mmol/L BUN 17 (6-24) mg/dL Creatinine 0.52 (0.51-0.95) mg/dL Est GFR ( Amer) 145.2 (>60) Est GFR (Non-Af Amer) 112.9 (>60) BUN/Creatinine Ratio 32.7 H (8-20) Glucose 80 (70-100) mg/dL Lactic Acid 1.1 (0.5-2.0) mmol/L Calcium 9.3 (8.6-10.3) mg/dL Magnesium 1.9 (1.9-2.7) mg/dL Total Bilirubin 0.50 (0.2-1.0) mg/dL AST 21 (13-39) U/L ALT 11 (7-52) U/L Alkaline Phosphatase 84 (34-104) U/L Troponin I 0.01 (<0.04) ng/mL C-Reactive Protein 222.68 H (< 5.00) mg/L B-Natriuretic Peptide ( - 100) pg/mL Total Protein 7.3 (6.4-8.9) g/dL Albumin 3.1 L (3.2-5.2) g/dL Globulin 4.2 H (2-4) g/dL Albumin/Globulin Ratio 0.7 L (1-3) Procalcitonin (<0.6) ng/mL TSH 3.70 (0.34-5.60) mcIU/mL 08/14/16 08/14/16 08/14/16 Range/Units 15:10 15:10 15:50 WBC (3.5-10.8) 10^3/ul RBC (4.0-5.4) 10^6/ul Hgb (12.0-16.0) g/dl Hct (35-47) % MCV (80-97) fL MCH (27-31) pg MCHC (31-36) g/dl RDW (10.5-15) % Plt Count (150-450) 10^3/ul MPV (7.4-10.4) um3 Neut % (Auto) (38-83) % Lymph % (Auto) (25-47) % Reynolds % (Auto) (1-9) % Eos % (Auto) (0-6) % Baso % (Auto) (0-2) % Absolute Neuts (auto) (1.5-7.7) 10^3/ul Absolute Lymphs (auto) (1.0-4.8) 10^3/ul Absolute Monos (auto) (0-0.8) 10^3/ul Absolute Eos (auto) (0-0.6) 10^3/ul Absolute Basos (auto) (0-0.2) 10^3/ul Absolute Nucleated RBC 10^3/ul Nucleated RBC % INR (Anticoag Therapy) 1.02 (0.89-1.11) APTT 30.7 (26.0-36.3) seconds D-Dimer, Quantitative 554 H (Less Than 230) ng/mL Sodium (133-145) mmol/L Potassium (3.5-5.0) mmol/L Chloride (101-111) mmol/L Carbon Dioxide (22-32) mmol/L Anion Gap (2-11) mmol/L BUN (6-24) mg/dL Creatinine (0.51-0.95) mg/dL Est GFR ( Amer) (>60) Est GFR (Non-Af Amer) (>60) BUN/Creatinine Ratio (8-20) Glucose (70-100) mg/dL Lactic Acid (0.5-2.0) mmol/L Calcium (8.6-10.3) mg/dL Magnesium (1.9-2.7) mg/dL Total Bilirubin (0.2-1.0) mg/dL AST (13-39) U/L ALT (7-52) U/L Alkaline Phosphatase (34-104) U/L Troponin I (<0.04) ng/mL C-Reactive Protein (< 5.00) mg/L B-Natriuretic Peptide 169 H ( - 100) pg/mL Total Protein (6.4-8.9) g/dL Albumin (3.2-5.2) g/dL Globulin (2-4) g/dL Albumin/Globulin Ratio (1-3) Procalcitonin 0.9 H (<0.6) ng/mL TSH (0.34-5.60) mcIU/mL Microbiology and Other Data: Microbiology 08/14/16 18:00 Urine Culture - Final Urine No Growth (<1,000 CFU/mL) Assess/Plan/Problems-Billing Ms Scott is an 81 yo F who has a h/o HTN who presented to the ER with c/o dyspnea and was ultimately found to have massive pleural thickening on the left. - Patient Problems (1) Acute CVA (cerebrovascular accident) Current Visit: Yes Status: Acute Code(s): I63.9 - CEREBRAL INFARCTION, UNSPECIFIED SNOMED Code(s): 303618313 Comment: THe patient underwent MRI of the brain yesterday as part of her staging eval and because the last CT showed an ambiguous area in the L frontal and the patient seeming to neglect her R side on exam by Dr. Hampton yesterday. The MRI showed an acute CVA in the distribution of the L anterior cerebral artery. Repeat CT this AM shows a subacute non hemorrhagic CVA in the anterior aspect the left central gyrus. The patient has been started on ASA. Tele has not revealed any afib. Carotid ultrasound is pending. She had an echo 08/14/16 without any significant findings. Dr. Mccurdy has been consulted. (2) Malignant mesothelioma of pleura Current Visit: Yes Status: Acute Code(s): C45.0 - MESOTHELIOMA OF PLEURA SNOMED Code(s): 754433446 Comment: The patient has been seen by oncology and has begun the staging eval with MRI (does not show met but acute CVA). Will need to see how the patient recovers from the acute CVA before determining if she would be a candidate for chemotherapy/surgery. (3) Anemia Current Visit: Yes Status: Acute Code(s): D64.9 - ANEMIA, UNSPECIFIED SNOMED Code(s): 826142943 Comment: Likely anemia of chronic disease (secondary to malignancy) and possible B12 deficiency. Continue B12 supplemenation. (4) HTN (hypertension) Current Visit: Yes Status: Acute Code(s): I10 - ESSENTIAL (PRIMARY) HYPERTENSION SNOMED Code(s): 03401424 Comment: BP is under good control on metoprolol 50mg TID. (5) Weakness Current Visit: Yes Status: Acute Code(s): R53.1 - WEAKNESS SNOMED Code(s) : 77854702 Comment: Will need STR now given the acute CVA. Will get PT and OT back involved. (6) DVT prophylaxis Current Visit: Yes Status: Acute Code(s): YQB6426 - SNOMED Code(s): 181407051 Comment: carmenx (7) Full code status Current Visit: Yes Status: Acute Code(s): Z78.9 - OTHER SPECIFIED HEALTH STATUS SNOMED Code(s): 503669526
--- NOTE | 2016-08-19 10:43 | RAD ---
HISTORY: Stroke COMPARISONS: None TECHNIQUE: Multiple transverse and longitudinal ultrasound images were obtained of the carotid and vertebral arteries bilaterally, using grayscale, color Doppler, and spectral Doppler imaging. FINDINGS: Measurement of carotid stenosis is based on flow velocity parameters that correlate the residual internal carotid artery diameter with [place] Symptomatic Carotid Endarterectomy Trial (NASCET)-based stenosis levels. RIGHT: Intima: There is diffuse intimal thickening with more focal atheroma formation at the bifurcation. Velocities: Right internal carotid artery maximum peak systolic velocity: 130 cm/s Right common carotid artery maximum peak systolic velocity: 83 cm/s Right internal carotid artery/common carotid artery ratio: 1.5 Waveforms: There is no spectral broadening. Right Vertebral: The right vertebral artery flow is antegrade. LEFT: Intima: There is diffuse intimal thickening with more focal atheroma formation at the bifurcation. Velocities: Left internal carotid artery maximum peak systolic velocity: 99 cm/s Left common carotid artery maximum peak systolic velocity: 102 cm/s Left internal carotid artery/common carotid artery ratio: 0.6 Waveforms: There is no spectral broadening. Left Vertebral: The left vertebral artery flow is antegrade. OTHER FINDINGS: None. IMPRESSION: 1. ATHEROMATOUS DISEASE. 2. MILDLY ELEVATED PEAK SYSTOLIC VELOCITY OF THE LEFT INTERNAL CAROTID ARTERY CONSISTENT WITH LEFT INTERNAL CAROTID ARTERY STENOSIS BETWEEN 50% AND 69% BY NASCET CRITERIA. BY NASCET CRITERIA. 3. NO HEMODYNAMICALLY SIGNIFICANT STENOSIS OF THE LEFT INTERNAL CAROTID ARTERY BY FLOW VELOCITY MEASUREMENTS. THIS CORRESPONDS TO A LUMINAL DIAMETER OF LESS THAN 50% STENOSIS BY NASCET CRITERIA. CPT II Codes: 3100F
[2016-08-19] MEDS: Enoxaparin(*) 40 MG/0.4 ML SYR SUBCUT SCH (12:13)
--- NOTE | 2016-08-19 15:55 | CONS ---
CONSULTATION REPORT: DATE OF CONSULT: 08/19/16 PATIENT OF: Dr. Haider and Dr. Almaguer. HISTORY OF PRESENT ILLNESS: This is an 81-year-old woman I am asked to evaluate for new onset of stroke. She presented on 08/14/16 with a history of both decreased tolerance to activity as well as diffuse weakness. She had a CT scan at that time which was read as normal; however, she has had somewhat fluctuation over the past few days' time including right-sided weakness and decreased speech and repeat CAT scans were obtained as well as an MRI scan and these have shown a subacute stroke, which has been present to my preview on all imaging studies. She has also been found to have mesothelioma. The nurse says that she has had fluctuation of interactions. At times, she can talk fully and be alert and oriented, at other times she is subdued and not talking much. These episodes last many hours and both nurse and treating physician know she may be depressed and withdrawn following her diagnosis of cancer. MEDICATIONS: She at home is only taking hydrochlorothiazide. ALLERGIES: She is allergic to PENICILLIN. FAMILY HISTORY: There is no family history that is known. SOCIAL HISTORY: She does not smoke or drink. She occasionally drinks alcohol. No drug abuse. 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 Lives with 4 cats. The daughter is the healthcare proxy. REVIEW OF SYSTEMS: She denied any headaches, difficulty with speech or balance issues when she had come in and again her history is limited at this point. PHYSICAL EXAM: Temperature 98.5, pulse 99, respirations 16, blood pressure 125/ 45. She was alert. She said her name and age but that is the only thing that she said when I tried to engage her in conversation or asked her questions. She would follow some one-step directions but would perseverate at times. Cranial nerves II through XII were intact with no facial weakness. Fundi were benign. Of note, she had a positive snout. Motor exam revealed normal tone bilaterally. 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 On her right leg, she did not move, the toes were downgoing, reflexes were 2 and equal. Sensation: No clear decrease to touch but she was not cooperative. Chest: Clear. Cardiovascular: Regular rate and rhythm. Abdomen: Soft, positive bowel sounds. DIAGNOSTIC STUDIES/LAB DATA: I reviewed her CT scan and MRI scans, which showed a right anterior cerebral artery infarct that was acute or subacute that was in the left anterior cerebral artery. There was some mild white matter disease as well and this finding was present on the CT scan as well as the MRI scan. Her carotid Doppler showed less than 50% stenosis on the left and when corrected showed 50% to 69%on the asymptomatic right side. Labs included sodium of 130, normal BMP, calcium 9.1. Total iron 17, TIBC 182. B12 240. TSH 3.1. Normal liver function tests. Normal INR and PTT. White count 7.3, hematocrit 30. Her LDL was 63. IMPRESSION AND PLAN: Etta has new onset of an anterior cerebral artery infarct she explains her right leg weakness, but may or may not be the explanation for her paucity of speech. This is coming and going, would make sense to check an EEG to screen for subclinical seizures, but I wonder whether some of this is that she is depressed and withdrawn. 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 I do not have any further recommendations. Thank you for sharing her case. I discussed the case with Dr. Haider. [id number]/[facility] #: [id number] [place]
--- NOTE | 2016-08-19 16:04 | ECHO ---
Patient: KWABENA FLORES [facility] Rec#: [id number] : 1935 Date: 08/19/2016 Age: 81y Height: 165 cm / 65.0 in Weight: 49.08 kg / 108.2 lbs Sex: F BSA: 1.52 Room#: [facility] Admit Date#: 08/14/2016 Type: Inpatient Referring: Rosa Haider DO Reading: Ihsan Marrufo MD Bus And Rail Operator: Janett Baires RDCS CC: Jt Almaguer MD Transthoracic Echocardiogram Indication: CVA BP: 129/51 HR: 101 Rhythm: Tachycardia Indications Cerebrovascular Disease Findings History: HTN, pleural effusion. This is a LIMITED study to evaluate for a CSOE with a bubble study. Technical Comments: The study quality is fair. Right Atrium: Interatrial septum appears intact without evidence of shunting. There is no patent foramen ovale visualized. A patent foramen ovale is not demonstrated by agitated contrast. Contrast: Normal saline was used as contrast for the bubble study. Intravenous contrast was used to help determine presence of intracardiac shunting. Conclusions LImited study for bubble study. Interatrial septum appears intact without evidence of shunting. There is no patent foramen ovale visualized. A patent foramen ovale is not demonstrated by agitated contrast.
[2016-08-20] MEDS: NS 0.9% 1000 ML* 1,000 ML IV SCH ×2 (03:44→14:21)
--- NOTE | 2016-08-20 07:58 | EEG ---
ELECTROENCEPHALOGRAPHY: DATE OF STUDY: 08/19/16 DATE OF DICTATION: 08/19/16 - ROOM #441 PATIENT OF: Dr. Rosa Haider HISTORY: This is an 81-year-old woman who is evaluated for fluctuating mental status in the setting of an acute stroke. MEDICATIONS: Include: 1. Lovenox. 2. B12. 3. Aspirin. 4. Lopressor. INTERPRETATION: With the patient awake, background cerebral activity consists of moderate amplitude posterior dominant 9 Hz rhythm. With the patient drowsy, there is some slowing into the theta range. The patient never falls fully asleep. No epileptiform potential or focal abnormalities or major asymmetries of background is noted. IMPRESSION: This awake and drowsy EEG is within normal limits. [id number]/[facility] #: [id number] [facility]ALTHLast
[2016-08-20] MEDS: Aspirin EC Low Dose* 81 MG TAB.EC PO SCH (08:56)
[2016-08-20] MEDS: Acetaminophen TAB* 325 MG PO PRN (08:56)
[2016-08-20] MEDS: Metoprolol Tartrate TAB* 50 mg PO SCH ×3 (08:57→21:00)
[2016-08-20] MEDS: Cyanocobalamin TAB* 500 MCG PO SCH (08:57)
--- NOTE | 2016-08-20 10:19 | PN ---
Subjective Date of Service: 08/20/16 Interval History: Pt is not answering any questions and is minimally interactive with me today. Her nurse states that she has complied with care (taking meds, bathing) and has been able to say her name, and answer a few select questions but she will not do this for me. Objective Active Medications: Acetaminophen (Tylenol Tab*) 650 mg PO Q4H PRN PRN Reason: FEVER/PAIN Last Admin: 08/20/16 08:56 Dose: 650 mg Aspirin (Aspirin Ec Low Dose*) 81 mg PO DAILY [facility] Last Admin: 08/20/16 08:56 Dose: 81 mg Cyanocobalamin (Vitamin B12 Tab*) 1,000 mcg PO DAILY [facility] Last Admin: 08/20/16 08:57 Dose: 1,000 mcg Enoxaparin Sodium (Lovenox(*)) 40 mg SUBCUT Q24H [facility] Last Admin: 08/19/16 12:13 Dose: 40 mg Sodium Chloride (Ns 0.9% 1000 Ml*) 1,000 mls @ 100 mls/hr IV PER RATE [facility] Last Admin: 08/20/16 03:44 Dose: 100 mls/hr Metoprolol Tartrate (Lopressor Tab*) 50 mg PO TID [facility] Last Admin: 08/20/16 08:57 Dose: 50 mg Vital Signs 08/19/16 08/19/16 08/19/16 13:14 16:00 16:14 Temperature 101.4 F 99.6 F Pulse Rate 101 97 Respiratory 16 24 Rate Blood Pressure 129/51 127/50 (mmHg) O2 Sat by Pulse 94 93 93 Oximetry 08/19/16 08/19/16 08/19/16 18:12 19:19 20:45 Temperature 98.1 F Pulse Rate 101 Respiratory 22 22 Rate Blood Pressure 118/43 (mmHg) O2 Sat by Pulse 93 94 92 Oximetry 08/19/16 08/19/16 08/20/16 22:42 23:33 03:28 Temperature 97.5 F 97.7 F Pulse Rate 86 101 Respiratory 20 28 Rate Blood Pressure 118/48 134/52 (mmHg) O2 Sat by Pulse 92 97 93 Oximetry 08/20/16 08/20/16 08/20/16 07:40 07:45 08:00 Temperature 99.2 F Pulse Rate 105 Respiratory 24 24 Rate Blood Pressure 134/54 (mmHg) O2 Sat by Pulse 91 92 Oximetry Oxygen Devices in Use Now: None Appearance: Elderly female sitting in a recliner, will not speak, makes poor eye contact, NAD Eyes: No Scleral Icterus Ears/Nose/Mouth/Throat: Mucous Membranes Moist Respiratory: Symmetrical Chest Expansion and Respiratory Effort, Clear to Auscultation - diminshed breath sounds on L Cardiovascular: NL Sounds; No Murmurs; No JVD, RRR, No Edema Abdominal: NL Sounds; No Tenderness; No Distention Extremities: No Clubbing, Cyanosis Skin: No Rash or Ulcers, No Nodules or Sclerosis Neurological: - - alert, poorly interactive, clearly depressed Result Diagrams: 08/15/16 05:08 08/18/16 16:07 Additional Lab and Data: Lab Results 08/14/16 08/14/16 08/14/16 Range/Units 15:10 15:10 15:10 WBC 9.9 (3.5-10.8) 10^3/ul RBC 3.76 L (4.0-5.4) 10^6/ul Hgb 9.9 L (12.0-16.0) g/dl Hct 31 L (35-47) % MCV 83 (80-97) fL MCH 26 L (27-31) pg MCHC 32 (31-36) g/dl RDW 16 H (10.5-15) % Plt Count 392 (150-450) 10^3/ul MPV 7 L (7.4-10.4) um3 Neut % (Auto) 72.4 (38-83) % Lymph % (Auto) 15.3 L (25-47) % Hubbard % (Auto) 10.8 H (1-9) % Eos % (Auto) 0.8 (0-6) % Baso % (Auto) 0.7 (0-2) % Absolute Neuts (auto) 7.1 (1.5-7.7) 10^3/ul Absolute Lymphs (auto) 1.5 (1.0-4.8) 10^3/ul Absolute Monos (auto) 1.1 H (0-0.8) 10^3/ul Absolute Eos (auto) 0.1 (0-0.6) 10^3/ul Absolute Basos (auto) 0.1 (0-0.2) 10^3/ul Absolute Nucleated RBC 0 10^3/ul Nucleated RBC % 0 INR (Anticoag Therapy) (0.89-1.11) APTT (26.0-36.3) seconds D-Dimer, Quantitative (Less Than 230) ng/mL Sodium 133 (133-145) mmol/L Potassium 4.0 (3.5-5.0) mmol/L Chloride 99 L (101-111) mmol/L Carbon Dioxide 25 (22-32) mmol/L Anion Gap 9 (2-11) mmol/L BUN 17 (6-24) mg/dL Creatinine 0.52 (0.51-0.95) mg/dL Est GFR ( Amer) 145.2 (>60) Est GFR (Non-Af Amer) 112.9 (>60) BUN/Creatinine Ratio 32.7 H (8-20) Glucose 80 (70-100) mg/dL Lactic Acid 1.1 (0.5-2.0) mmol/L Calcium 9.3 (8.6-10.3) mg/dL Magnesium 1.9 (1.9-2.7) mg/dL Total Bilirubin 0.50 (0.2-1.0) mg/dL AST 21 (13-39) U/L ALT 11 (7-52) U/L Alkaline Phosphatase 84 (34-104) U/L Troponin I 0.01 (<0.04) ng/mL C-Reactive Protein 222.68 H (< 5.00) mg/L B-Natriuretic Peptide ( - 100) pg/mL Total Protein 7.3 (6.4-8.9) g/dL Albumin 3.1 L (3.2-5.2) g/dL Globulin 4.2 H (2-4) g/dL Albumin/Globulin Ratio 0.7 L (1-3) Procalcitonin (<0.6) ng/mL TSH 3.70 (0.34-5.60) mcIU/mL 08/14/16 08/14/16 08/14/16 Range/Units 15:10 15:10 15:50 WBC (3.5-10.8) 10^3/ul RBC (4.0-5.4) 10^6/ul Hgb (12.0-16.0) g/dl Hct (35-47) % MCV (80-97) fL MCH (27-31) pg MCHC (31-36) g/dl RDW (10.5-15) % Plt Count (150-450) 10^3/ul MPV (7.4-10.4) um3 Neut % (Auto) (38-83) % Lymph % (Auto) (25-47) % Hubbard % (Auto) (1-9) % Eos % (Auto) (0-6) % Baso % (Auto) (0-2) % Absolute Neuts (auto) (1.5-7.7) 10^3/ul Absolute Lymphs (auto) (1.0-4.8) 10^3/ul Absolute Monos (auto) (0-0.8) 10^3/ul Absolute Eos (auto) (0-0.6) 10^3/ul Absolute Basos (auto) (0-0.2) 10^3/ul Absolute Nucleated RBC 10^3/ul Nucleated RBC % INR (Anticoag Therapy) 1.02 (0.89-1.11) APTT 30.7 (26.0-36.3) seconds D-Dimer, Quantitative 554 H (Less Than 230) ng/mL Sodium (133-145) mmol/L Potassium (3.5-5.0) mmol/L Chloride (101-111) mmol/L Carbon Dioxide (22-32) mmol/L Anion Gap (2-11) mmol/L BUN (6-24) mg/dL Creatinine (0.51-0.95) mg/dL Est GFR ( Amer) (>60) Est GFR (Non-Af Amer) (>60) BUN/Creatinine Ratio (8-20) Glucose (70-100) mg/dL Lactic Acid (0.5-2.0) mmol/L Calcium (8.6-10.3) mg/dL Magnesium (1.9-2.7) mg/dL Total Bilirubin (0.2-1.0) mg/dL AST (13-39) U/L ALT (7-52) U/L Alkaline Phosphatase (34-104) U/L Troponin I (<0.04) ng/mL C-Reactive Protein (< 5.00) mg/L B-Natriuretic Peptide 169 H ( - 100) pg/mL Total Protein (6.4-8.9) g/dL Albumin (3.2-5.2) g/dL Globulin (2-4) g/dL Albumin/Globulin Ratio (1-3) Procalcitonin 0.9 H (<0.6) ng/mL TSH (0.34-5.60) mcIU/mL Microbiology and Other Data: Microbiology 08/14/16 18:00 Urine Culture - Final Urine No Growth (<1,000 CFU/mL) Assess/Plan/Problems-Billing Ms Scott is an 81 yo F who has a h/o HTN who presented to the ER with c/o dyspnea and was ultimately found to have massive pleural thickening on the left. - Patient Problems (1) Acute CVA (cerebrovascular accident) Current Visit: Yes Status: Acute Code(s): I63.9 - CEREBRAL INFARCTION, UNSPECIFIED SNOMED Code(s): 676165653 Comment: Continue ASA. THe patient appears to be weak on the R but she does not try very much on exam to test her strength therefore making the eval difficult. She will not speak but the area of her stroke should not affect her speech making me suspicious that her current presentation is likely largely related to depression. The patient has become much more withdrawn/depressed over the course of her hospitalization. (2) Malignant mesothelioma of pleura Current Visit: Yes Status: Acute Code(s): C45.0 - MESOTHELIOMA OF PLEURA SNOMED Code(s): 324128178 Comment: While the patient may improve some from her CVA she is essentially not eating except ensure, she is very depressed and likely her performance status is declining making treatment for the mesothelioma less likely an option. Will get palliative care consult. (3) Anemia Current Visit: Yes Status: Acute Code(s): D64.9 - ANEMIA, UNSPECIFIED SNOMED Code(s): 631293165 Comment: Likely anemia of chronic disease (secondary to malignancy) and possible B12 deficiency. Continue B12 supplemenation. (4) HTN (hypertension) Current Visit: Yes Status: Acute Code(s): I10 - ESSENTIAL (PRIMARY) HYPERTENSION SNOMED Code(s): 87548947 Comment: BP is under good control on metoprolol 50mg TID. (5) Weakness Current Visit: Yes Status: Acute Code(s): R53.1 - WEAKNESS SNOMED Code(s) : 86717915 Comment: Will need STR now given the acute CVA though she is not participating much. (6) DVT prophylaxis Current Visit: Yes Status: Acute Code(s): [id number] - SNOMED Code(s): 014693421 Comment: dimas (7) Full code status Current Visit: Yes Status: Acute Code(s): Z78.9 - OTHER SPECIFIED HEALTH STATUS SNOMED Code(s): 381547470
[2016-08-20] MEDS: Enoxaparin(*) 40 MG/0.4 ML SYR SUBCUT SCH (12:19)
--- NOTE | 2016-08-20 14:16 | CONS ---
CC: Jt Almaguer MD; Rosa Haider DO * PALLIATIVE CARE CONSULTATION: DATE OF CONSULT: 08/20/16 PRIMARY CARE PHYSICIAN: Jt Almaguer MD REFERRING PHYSICIAN: Rosa Haider DO HOSPITAL COURSE: This is an 81-year-old female who presented to the emergency room on the with shortness of breath and weakness. On admission, the patient was found to have a left-sided pleural effusion and scheduled to have thoracentesis at that time. The patient on admission was complaining of near falls. The patient's initial workup was relatively unremarkable. She had a chest CTA done on admission as well showing extensive nodular pleural thickening of the left hemithorax with an enlarged pericardial lymph node concerning with neoplasm. Pulmonary was involved. The patient had a lung biopsy , ultrasound-guided. 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 The patient also seemed to be having wax and waning, weakness during her admission. She had another head CT done on the that showed possibly microvascular disease versus metastasis. 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 The patient's right-sided upper and lower extremity began to progressively worsen to which point she developed paralysis. Since she was diagnosed with malignant mesothelioma, the patient has become more withdrawn and has been minimally interactive. Dr. Haider spoke with neurology regarding her withdrawn features and an EEG was ordered to rule out subclinical seizures, which was unremarkable and it was felt that her limited verbal interaction is not secondary to her stroke. The patient is also had limited p.o. intake, will drink small amount of Ensure with the left hand, but otherwise was not eating very much solid food intake. The patient was living alone independently prior to this admission and speaking with her son-in-law, Virgil Haro who is the designated healthcare proxy feels that she is very independent, stubborn, and refused to move down with him to [place] a few years ago and he feels that with this new diagnosis, she has become significantly depressed and withdrawn. She has not been able to participate in rehab, physical therapy at all. I discussed with him my concern with the decrease in her p.o. and her limited ability to participate in verbal interaction that she would not be a good candidate for treatment for mesothelioma or treatment for rehab for her stroke and that because of that she is a candidate for hospice. The son-in-law is agreeable to this and we discussed jail with hospice likely the ideal location for her disposition. On my encounter with the patient, she remains nonverbal. I asked several questions, but she would not verbalize or shake her head yes or no to any of my questions. She would not follow any commands from me either. She was making eye contact with me throughout the entire conversation and tracking me as well. Otherwise unable to obtain review of systems. PAST MEDICAL HISTORY: 1. Hypertension. 2. Hospital course complicated by new diagnosis of malignant mesothelioma and acute CVA with right-sided paralysis and new onset depression. INPATIENT MEDICATIONS: 1. Tylenol 650 mg every 4 hours as needed. 2. Aspirin 81 mg daily. 3. Cyanocobalamin 1000 mcg daily. 4. Lovenox 40 mg subcu daily. 5. Metoprolol tartrate 50 mg p.o. t.i.d. 6. Normal saline 100 cc an hour. ALLERGIES: PENICILLIN, develops a rash. FAMILY HISTORY: Unknown. SOCIAL HISTORY: Prior to this admission, the patient was living in a mobile home with four cats. No history of tobacco use. She occasionally drinks alcohol. She states one to two glasses of wine per day on her admission note. 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 Her daughter and son-in-law Virgil and Sallie Haro are her healthcare proxy, phone number [phone]. MOLST form has been completed initially DNR, now DNR/DNI. REVIEW OF SYSTEMS: Unable to obtain due to the patient's being nonverbal. PHYSICAL EXAM: Vital Signs: Temp 99.2, pulse rate is 115, respiratory rate 24 , oxygen saturation 92% on room air, blood pressure 134/54. General: In no acute distress, noted right-sided facial palsy or facial droop. HEENT: Pupils are equal and reactive. Anicteric. Head, normocephalic. Unable to look into her mouth. Neck: Supple. No adenopathy. Cardiac: Regular rate and rhythm. Harsh systolic murmur heard most prominent at the right sternal base. Respiratory: Diminished breath sounds. No wheezes, rhonchi, or rales. Abdomen : Soft and nontender. Extremities: No clubbing, cyanosis, or edema. +1 DPs. Neurologic: The patient was noted unable to move her right upper and lower extremities. She is moving her left upper and lower extremities, but unable to follow commands. DIAGNOSTIC STUDIES/LAB DATA: From the , white count 7.3, hemoglobin 9.8, hematocrit 30, and platelets 274. From the the , BMP: Sodium 130, potassium 4.0, chloride 99, bicarbonate 25, BUN 12, creatinine 0.55. RADIOGRAPHIC DATA: Brain MRI shows findings consistent with acute infarction in the distribution of the left anterior cerebral artery and lung biopsy results for malignant mesothelioma. ASSESSMENT: This is an 81-year-old female with an unremarkable past medical history, living independently, who presented to the emergency room on the with weakness and shortness of breath and diagnosed with an acute cerebrovascular accident with right-sided paralysis and new diagnosis of malignant mesothelioma. The patient is eligible for hospice with a diagnosis of acute cerebrovascular accident with poor p.o. intake and inability to participate in any rehabilitation, secondary to diagnosis of mesothelioma. I did speak with the son-in-law, Virgil Haro who is from [place] is returning to [facility] and should be here to speak with staff on the regarding disposition. He is agreeable to this plan. He also confirmed she is DNI. I discussed that she may improved with her mental status, become more a active participant in rehabilitation with her stroke, but would recommend jail with hospice at this time and to see how she does if she doesn't improve over next few days. Dr. Haider has planned to start the patient on Prozac, I also recommended Ritalin as a stimulant in setting of situational depression and withdrawn symptoms. PATIENT TIME: Greater than 90 minutes spent doing the consultation, more than half the time spent in direct patient contact. [id number]/[facility] #: [id number] [place]
[2016-08-21] MEDS: Acetaminophen TAB* 325 MG PO PRN (00:38)
[2016-08-21] MEDS: NS 0.9% 1000 ML* 1,000 ML IV SCH ×2 (00:42→21:42)
--- NOTE | 2016-08-21 06:34 | PN ---
NEUROLOGICAL FOLLOWUP: DATE OF SERVICE: 08/20/16 PATIENT OF: Dr. Haider. HISTORY: She remains noncommunicative with me, but fixes and follows, and is somewhat cooperative with commands. I spoke to her nurse who said that she has been able to tell her, her age and her name, and then she was getting up out of a chair. The nurse asked if she needed to tell her what she needed and she said bathroom. The nurse said that her speech was clear and not slurred, but was limited even for the nurse. MEDICATIONS: Include: 1. Lopressor 50 t.i.d. 2. Lovenox 40 mg subcu. 3. B12 1000 mcg daily. 4. Aspirin 81 mg daily. PHYSICAL EXAMINATION: Temperature 99.2, pulse 115, respirations 24, blood pressure 134/54. She was alert and made good eye contact, and fixed and followed, and would squeeze my fingers with either hand when asked. There still seemed to be decreased movement in her right leg compared to the left, but she was not fully cooperative. Cranial nerves II through XII are nonfocal. Chest: Clear. Cardiovascular: Regular rate and rhythm. Abdomen: Soft, with positive bowel sounds. DIAGNOSTIC STUDIES/LAB DATA: Her EEG was normal. Her transesophageal echo showed no PFO. Her carotid Doppler was as discussed yesterday. IMPRESSION AND PLAN: Etta has had a stroke, which, by its distribution in the anterior cerebral artery, would affect the leg more than arm, and speech would not typically be affected. It is possible that this came from her carotid and not just her anterior cerebral artery, and if that was the case and there was ischemia in the middle cerebral artery distribution that was not visualized on MA scan, there could be some speech deficit. However, her presentation is odd because if that was the case, you would expect, if the leg was affected and the speech, that the arm would be affected as well. You would also, typical with such speech delays, see something on MRI scan. Also there was an inconsistency in that she is able to speak and answer questions to the nurse, but is completely mute to myself and Dr. Haider. I think that this could be in part due to depression, but it is hard to fully assess. It appears that the tentative plan is perhaps to have palliative care rather than treatment of her mesothelioma, and no further neurological recommendation is being made at this point. Thank you for sharing her case. [id number]/[facility] #: [id number] [place]
[2016-08-21] MEDS: Metoprolol Tartrate TAB* 50 mg PO SCH ×3 (08:36→21:43)
[2016-08-21] MEDS: Cyanocobalamin TAB* 500 MCG PO SCH (08:36)
[2016-08-21] MEDS: Aspirin EC Low Dose* 81 MG TAB.EC PO SCH (08:36)
[2016-08-21] MEDS ORDERED: Docusate CAP* 100 MG PO PRN (10:14)
[2016-08-21] MEDS ORDERED: Senna TAB PO PRN (10:14)
--- NOTE | 2016-08-21 10:19 | PN ---
Subjective Date of Service: 08/21/16 Interval History: Pt is feeling ok. She does answer a few questions today. She is able to tell me she has not had a BM in several days. She denies pain. Objective Active Medications: Acetaminophen (Tylenol Tab*) 650 mg PO Q4H PRN PRN Reason: FEVER/PAIN Last Admin: 08/21/16 00:38 Dose: 650 mg Aspirin (Aspirin Ec Low Dose*) 81 mg PO DAILY [facility] Last Admin: 08/21/16 08:36 Dose: 81 mg Cyanocobalamin (Vitamin B12 Tab*) 1,000 mcg PO DAILY [facility] Last Admin: 08/21/16 08:36 Dose: 1,000 mcg Enoxaparin Sodium (Lovenox(*)) 40 mg SUBCUT Q24H [facility] Last Admin: 08/20/16 12:19 Dose: 40 mg Sodium Chloride (Ns 0.9% 1000 Ml*) 1,000 mls @ 100 mls/hr IV PER RATE [facility] Last Admin: 08/21/16 00:42 Dose: 100 mls/hr Metoprolol Tartrate (Lopressor Tab*) 50 mg PO TID [facility] Last Admin: 08/21/16 08:36 Dose: 50 mg Vital Signs 08/20/16 08/20/16 08/20/16 10:44 10:56 15:16 Temperature Pulse Rate 85 81 Respiratory 24 28 Rate Blood Pressure 111/41 125/57 (mmHg) O2 Sat by Pulse 92 95 98 Oximetry 08/20/16 08/20/16 08/20/16 15:20 16:00 20:00 Temperature 97.3 F Pulse Rate Respiratory 22 Rate Blood Pressure (mmHg) O2 Sat by Pulse 97 92 Oximetry 08/20/16 08/21/16 08/21/16 20:58 00:00 00:27 Temperature 97.3 F 99.7 F Pulse Rate 93 106 Respiratory 24 16 Rate Blood Pressure 113/41 142/45 (mmHg) O2 Sat by Pulse 92 97 97 Oximetry 08/21/16 08/21/16 08/21/16 05:00 07:05 07:29 Temperature 97.3 F 97.5 F Pulse Rate 92 94 Respiratory 16 24 24 Rate Blood Pressure 129/44 141/51 (mmHg) O2 Sat by Pulse 94 99 99 Oximetry 08/21/16 08/21/16 07:40 09:21 Temperature Pulse Rate Respiratory Rate Blood Pressure (mmHg) O2 Sat by Pulse 99 98 Oximetry Oxygen Devices in Use Now: None Appearance: Elderly female lying in bed, NAD Eyes: No Scleral Icterus Ears/Nose/Mouth/Throat: Mucous Membranes Moist Respiratory: Symmetrical Chest Expansion and Respiratory Effort, Clear to Auscultation Cardiovascular: NL Sounds; No Murmurs; No JVD, No Edema, - - tachycardic but regular Abdominal: NL Sounds; No Tenderness; No Distention Extremities: No Clubbing, Cyanosis Skin: No Rash or Ulcers, No Nodules or Sclerosis Neurological: - - alert, speaks a little today, no dysarthria, R UE strength weakened but unclear if she is giving full effort, R LE flaccid Result Diagrams: 08/15/16 05:08 08/18/16 16:07 Additional Lab and Data: Lab Results 08/14/16 08/14/16 08/14/16 Range/Units 15:10 15:10 15:10 WBC 9.9 (3.5-10.8) 10^3/ul RBC 3.76 L (4.0-5.4) 10^6/ul Hgb 9.9 L (12.0-16.0) g/dl Hct 31 L (35-47) % MCV 83 (80-97) fL MCH 26 L (27-31) pg MCHC 32 (31-36) g/dl RDW 16 H (10.5-15) % Plt Count 392 (150-450) 10^3/ul MPV 7 L (7.4-10.4) um3 Neut % (Auto) 72.4 (38-83) % Lymph % (Auto) 15.3 L (25-47) % [place] % (Auto) 10.8 H (1-9) % Eos % (Auto) 0.8 (0-6) % Baso % (Auto) 0.7 (0-2) % Absolute Neuts (auto) 7.1 (1.5-7.7) 10^3/ul Absolute Lymphs (auto) 1.5 (1.0-4.8) 10^3/ul Absolute Monos (auto) 1.1 H (0-0.8) 10^3/ul Absolute Eos (auto) 0.1 (0-0.6) 10^3/ul Absolute Basos (auto) 0.1 (0-0.2) 10^3/ul Absolute Nucleated RBC 0 10^3/ul Nucleated RBC % 0 INR (Anticoag Therapy) (0.89-1.11) APTT (26.0-36.3) seconds D-Dimer, Quantitative (Less Than 230) ng/mL Sodium 133 (133-145) mmol/L Potassium 4.0 (3.5-5.0) mmol/L Chloride 99 L (101-111) mmol/L Carbon Dioxide 25 (22-32) mmol/L Anion Gap 9 (2-11) mmol/L BUN 17 (6-24) mg/dL Creatinine 0.52 (0.51-0.95) mg/dL Est GFR ( Amer) 145.2 (>60) Est GFR (Non-Af Amer) 112.9 (>60) BUN/Creatinine Ratio 32.7 H (8-20) Glucose 80 (70-100) mg/dL Lactic Acid 1.1 (0.5-2.0) mmol/L Calcium 9.3 (8.6-10.3) mg/dL Magnesium 1.9 (1.9-2.7) mg/dL Total Bilirubin 0.50 (0.2-1.0) mg/dL AST 21 (13-39) U/L ALT 11 (7-52) U/L Alkaline Phosphatase 84 (34-104) U/L Troponin I 0.01 (<0.04) ng/mL C-Reactive Protein 222.68 H (< 5.00) mg/L B-Natriuretic Peptide ( - 100) pg/mL Total Protein 7.3 (6.4-8.9) g/dL Albumin 3.1 L (3.2-5.2) g/dL Globulin 4.2 H (2-4) g/dL Albumin/Globulin Ratio 0.7 L (1-3) Procalcitonin (<0.6) ng/mL TSH 3.70 (0.34-5.60) mcIU/mL 08/14/16 08/14/16 08/14/16 Range/Units 15:10 15:10 15:50 WBC (3.5-10.8) 10^3/ul RBC (4.0-5.4) 10^6/ul Hgb (12.0-16.0) g/dl Hct (35-47) % MCV (80-97) fL MCH (27-31) pg MCHC (31-36) g/dl RDW (10.5-15) % Plt Count (150-450) 10^3/ul MPV (7.4-10.4) um3 Neut % (Auto) (38-83) % Lymph % (Auto) (25-47) % [place] % (Auto) (1-9) % Eos % (Auto) (0-6) % Baso % (Auto) (0-2) % Absolute Neuts (auto) (1.5-7.7) 10^3/ul Absolute Lymphs (auto) (1.0-4.8) 10^3/ul Absolute Monos (auto) (0-0.8) 10^3/ul Absolute Eos (auto) (0-0.6) 10^3/ul Absolute Basos (auto) (0-0.2) 10^3/ul Absolute Nucleated RBC 10^3/ul Nucleated RBC % INR (Anticoag Therapy) 1.02 (0.89-1.11) APTT 30.7 (26.0-36.3) seconds D-Dimer, Quantitative 554 H (Less Than 230) ng/mL Sodium (133-145) mmol/L Potassium (3.5-5.0) mmol/L Chloride (101-111) mmol/L Carbon Dioxide (22-32) mmol/L Anion Gap (2-11) mmol/L BUN (6-24) mg/dL Creatinine (0.51-0.95) mg/dL Est GFR ( Amer) (>60) Est GFR (Non-Af Amer) (>60) BUN/Creatinine Ratio (8-20) Glucose (70-100) mg/dL Lactic Acid (0.5-2.0) mmol/L Calcium (8.6-10.3) mg/dL Magnesium (1.9-2.7) mg/dL Total Bilirubin (0.2-1.0) mg/dL AST (13-39) U/L ALT (7-52) U/L Alkaline Phosphatase (34-104) U/L Troponin I (<0.04) ng/mL C-Reactive Protein (< 5.00) mg/L B-Natriuretic Peptide 169 H ( - 100) pg/mL Total Protein (6.4-8.9) g/dL Albumin (3.2-5.2) g/dL Globulin (2-4) g/dL Albumin/Globulin Ratio (1-3) Procalcitonin 0.9 H (<0.6) ng/mL TSH (0.34-5.60) mcIU/mL Microbiology and Other Data: Microbiology 08/14/16 18:00 Urine Culture - Final Urine No Growth (<1,000 CFU/mL) Assess/Plan/Problems-Billing Ms Scott is an 81 yo F who has a h/o HTN who presented to the ER with c/o dyspnea and was ultimately found to have massive pleural thickening on the left. - Patient Problems (1) Acute CVA (cerebrovascular accident) Current Visit: Yes Status: Acute Code(s): I63.9 - CEREBRAL INFARCTION, UNSPECIFIED SNOMED Code(s): 368145598 Comment: Continue ASA. No further treatment beyond PT/OT/speech. The patient is speaking some today. Will start prozac 20mg daily for depression but the prozac may also help with motor recovery from the stroke. (2) Malignant mesothelioma of pleura Current Visit: Yes Status: Acute Code(s): C45.0 - MESOTHELIOMA OF PLEURA SNOMED Code(s): 341370514 Comment: Will monitor over the next couple days to see if she improves some or starts to interact more. If she is able to rehab perhaps she could be offered treatment. Palliative care saw the patient yesterday and felt that the patient would be hospice eligible. (3) Anemia Current Visit: Yes Status: Acute Code(s): D64.9 - ANEMIA, UNSPECIFIED SNOMED Code(s): 645184708 Comment: Likely anemia of chronic disease (secondary to malignancy) and possible B12 deficiency. Continue B12 supplemenation. (4) HTN (hypertension) Current Visit: Yes Status: Acute Code(s): I10 - ESSENTIAL (PRIMARY) HYPERTENSION SNOMED Code(s): 19035357 Comment: BP is under good control on metoprolol 50mg TID. (5) Weakness Current Visit: Yes Status: Acute Code(s): R53.1 - WEAKNESS SNOMED Code(s) : 07542401 Comment: Will need STR now given the acute CVA. PT/OT to continue to follow. (6) DVT prophylaxis Current Visit: Yes Status: Acute Code(s): IHI4859 - SNOMED Code(s): 363384997 Comment: dimas (7) Full code status Current Visit: Yes Status: Acute Code(s): Z78.9 - OTHER SPECIFIED HEALTH STATUS SNOMED Code(s): 165966386
[2016-08-21] MEDS: FLUoxetine CAP* 20 MG PO SCH (11:04)
[2016-08-21] MEDS: Enoxaparin(*) 40 MG/0.4 ML SYR SUBCUT SCH (13:12)
[2016-08-22] MEDS: Acetaminophen TAB* 325 MG PO PRN (03:29)
[2016-08-22 05:57] LABS: BUN/Creatinine Ratio 34.2 (8-20); Calcium 8.4 mg/dL (8.6-10.3); EGFR African American 208.5 (>60); EGFR Non-African American 162.1 (>60); Potassium 3.2 mmol/L (3.5-5.0)
[2016-08-22 07:44] LABS: Hematocrit 31 % (35-47); Hemoglobin 9.9 g/dl (12.0-16.0); Mean Corpuscular HGB Conc 32 g/dl (31-36); Mean Corpuscular Hemoglobin 26 pg (27-31); Mean Corpuscular Volume 83 fL (80-97); Mean Platelet Volume 7 um3 (7.4-10.4); Red Blood Count 3.79 10^6/ul (4.0-5.4); Red Cell Distribution Width 16 % (10.5-15); White Blood Count 10.6 10^3/ul (3.5-10.8)
[2016-08-22] MEDS: NS 0.9% 1000 ML* 1,000 ML IV SCH ×2 (08:58→19:32)
[2016-08-22] MEDS: Metoprolol Tartrate TAB* 50 mg PO SCH ×3 (09:02→21:12)
[2016-08-22] MEDS: Aspirin EC Low Dose* 81 MG TAB.EC PO SCH (09:02)
[2016-08-22] MEDS: Cyanocobalamin TAB* 500 MCG PO SCH (09:02)
[2016-08-22] MEDS: FLUoxetine CAP* 20 MG PO SCH (09:02)
[2016-08-22] MEDS ORDERED: Potassium Chloride LIQUID* 20 MEQ PACKET PO ONE (10:18)
--- NOTE | 2016-08-22 10:34 | PN ---
Subjective Date of Service: 08/22/16 Interval History: Pt denies any pain. She states she is done eating but that she didn't eat very much (toast and orange juice). She admits to being depressed. Objective Active Medications: Acetaminophen (Tylenol Tab*) 650 mg PO Q4H PRN PRN Reason: FEVER/PAIN Last Admin: 08/22/16 03:29 Dose: 650 mg Aspirin (Aspirin Ec Low Dose*) 81 mg PO DAILY [facility] Last Admin: 08/22/16 09:02 Dose: 81 mg Cyanocobalamin (Vitamin B12 Tab*) 1,000 mcg PO DAILY [facility] Last Admin: 08/22/16 09:02 Dose: 1,000 mcg Docusate Sodium (Colace Cap*) 100 mg PO BID PRN PRN Reason: CONSTIPATION Last Admin: 08/21/16 11:04 Dose: 100 mg Enoxaparin Sodium (Lovenox(*)) 40 mg SUBCUT Q24H [facility] Last Admin: 08/21/16 13:12 Dose: 40 mg Fluoxetine HCl (Prozac Cap*) 20 mg PO DAILY [facility] Last Admin: 08/22/16 09:02 Dose: 20 mg Sodium Chloride (Ns 0.9% 1000 Ml*) 1,000 mls @ 100 mls/hr IV PER RATE [facility] Last Admin: 08/22/16 08:58 Dose: 100 mls/hr Metoprolol Tartrate (Lopressor Tab*) 50 mg PO TID [facility] Last Admin: 08/22/16 09:02 Dose: 50 mg Senna (Senokot Tab*) 1 tab PO BEDTIME PRN PRN Reason: CONSTIPATION Last Admin: 08/21/16 11:04 Dose: 1 tab Vital Signs 08/21/16 08/21/16 08/21/16 13:09 15:33 16:00 Temperature 98.4 F 97.4 F Pulse Rate 94 92 Respiratory 20 20 Rate Blood Pressure 120/40 139/59 (mmHg) O2 Sat by Pulse 95 95 95 Oximetry 08/21/16 08/21/16 08/21/16 19:51 20:00 21:24 Temperature 98.2 F Pulse Rate 97 Respiratory 18 18 Rate Blood Pressure 152/57 (mmHg) O2 Sat by Pulse 97 97 93 Oximetry 08/21/16 08/22/16 08/22/16 23:36 00:00 03:12 Temperature 98.2 F 99.2 F Pulse Rate 87 97 Respiratory 20 20 Rate Blood Pressure 133/48 135/48 (mmHg) O2 Sat by Pulse 95 95 93 Oximetry 08/22/16 08/22/16 08:00 08:43 Temperature 97.6 F Pulse Rate 86 Respiratory 16 16 Rate Blood Pressure 132/60 (mmHg) O2 Sat by Pulse 96 96 Oximetry Oxygen Devices in Use Now: None Appearance: Elderly female sitting up in bed, NAD Eyes: No Scleral Icterus Ears/Nose/Mouth/Throat: Mucous Membranes Moist Respiratory: Symmetrical Chest Expansion and Respiratory Effort, Clear to Auscultation Cardiovascular: NL Sounds; No Murmurs; No JVD, RRR, No Edema Abdominal: NL Sounds; No Tenderness; No Distention Extremities: No Clubbing, Cyanosis Skin: No Rash or Ulcers, No Nodules or Sclerosis, - - ? bruise R cheek (red/ purple discoloration) was not present previously Neurological: - - flaccid R LE, R UE with good flanging roll operator strength and reduced strength in biceps/triceps, alert, speaks though speech is sparse Result Diagrams: 08/22/16 07:30 08/22/16 05:36 Additional Lab and Data: Lab Results 08/14/16 08/14/16 08/14/16 Range/Units 15:10 15:10 15:10 WBC 9.9 (3.5-10.8) 10^3/ul RBC 3.76 L (4.0-5.4) 10^6/ul Hgb 9.9 L (12.0-16.0) g/dl Hct 31 L (35-47) % MCV 83 (80-97) fL MCH 26 L (27-31) pg MCHC 32 (31-36) g/dl RDW 16 H (10.5-15) % Plt Count 392 (150-450) 10^3/ul MPV 7 L (7.4-10.4) um3 Neut % (Auto) 72.4 (38-83) % Lymph % (Auto) 15.3 L (25-47) % [place] % (Auto) 10.8 H (1-9) % Eos % (Auto) 0.8 (0-6) % Baso % (Auto) 0.7 (0-2) % Absolute Neuts (auto) 7.1 (1.5-7.7) 10^3/ul Absolute Lymphs (auto) 1.5 (1.0-4.8) 10^3/ul Absolute Monos (auto) 1.1 H (0-0.8) 10^3/ul Absolute Eos (auto) 0.1 (0-0.6) 10^3/ul Absolute Basos (auto) 0.1 (0-0.2) 10^3/ul Absolute Nucleated RBC 0 10^3/ul Nucleated RBC % 0 INR (Anticoag Therapy) (0.89-1.11) APTT (26.0-36.3) seconds D-Dimer, Quantitative (Less Than 230) ng/mL Sodium 133 (133-145) mmol/L Potassium 4.0 (3.5-5.0) mmol/L Chloride 99 L (101-111) mmol/L Carbon Dioxide 25 (22-32) mmol/L Anion Gap 9 (2-11) mmol/L BUN 17 (6-24) mg/dL Creatinine 0.52 (0.51-0.95) mg/dL Est GFR ( Amer) 145.2 (>60) Est GFR (Non-Af Amer) 112.9 (>60) BUN/Creatinine Ratio 32.7 H (8-20) Glucose 80 (70-100) mg/dL Lactic Acid 1.1 (0.5-2.0) mmol/L Calcium 9.3 (8.6-10.3) mg/dL Magnesium 1.9 (1.9-2.7) mg/dL Total Bilirubin 0.50 (0.2-1.0) mg/dL AST 21 (13-39) U/L ALT 11 (7-52) U/L Alkaline Phosphatase 84 (34-104) U/L Troponin I 0.01 (<0.04) ng/mL C-Reactive Protein 222.68 H (< 5.00) mg/L B-Natriuretic Peptide ( - 100) pg/mL Total Protein 7.3 (6.4-8.9) g/dL Albumin 3.1 L (3.2-5.2) g/dL Globulin 4.2 H (2-4) g/dL Albumin/Globulin Ratio 0.7 L (1-3) Procalcitonin (<0.6) ng/mL TSH 3.70 (0.34-5.60) mcIU/mL 08/14/16 08/14/16 08/14/16 Range/Units 15:10 15:10 15:50 WBC (3.5-10.8) 10^3/ul RBC (4.0-5.4) 10^6/ul Hgb (12.0-16.0) g/dl Hct (35-47) % MCV (80-97) fL MCH (27-31) pg MCHC (31-36) g/dl RDW (10.5-15) % Plt Count (150-450) 10^3/ul MPV (7.4-10.4) um3 Neut % (Auto) (38-83) % Lymph % (Auto) (25-47) % Bailey % (Auto) (1-9) % Eos % (Auto) (0-6) % Baso % (Auto) (0-2) % Absolute Neuts (auto) (1.5-7.7) 10^3/ul Absolute Lymphs (auto) (1.0-4.8) 10^3/ul Absolute Monos (auto) (0-0.8) 10^3/ul Absolute Eos (auto) (0-0.6) 10^3/ul Absolute Basos (auto) (0-0.2) 10^3/ul Absolute Nucleated RBC 10^3/ul Nucleated RBC % INR (Anticoag Therapy) 1.02 (0.89-1.11) APTT 30.7 (26.0-36.3) seconds D-Dimer, Quantitative 554 H (Less Than 230) ng/mL Sodium (133-145) mmol/L Potassium (3.5-5.0) mmol/L Chloride (101-111) mmol/L Carbon Dioxide (22-32) mmol/L Anion Gap (2-11) mmol/L BUN (6-24) mg/dL Creatinine (0.51-0.95) mg/dL Est GFR ( Amer) (>60) Est GFR (Non-Af Amer) (>60) BUN/Creatinine Ratio (8-20) Glucose (70-100) mg/dL Lactic Acid (0.5-2.0) mmol/L Calcium (8.6-10.3) mg/dL Magnesium (1.9-2.7) mg/dL Total Bilirubin (0.2-1.0) mg/dL AST (13-39) U/L ALT (7-52) U/L Alkaline Phosphatase (34-104) U/L Troponin I (<0.04) ng/mL C-Reactive Protein (< 5.00) mg/L B-Natriuretic Peptide 169 H ( - 100) pg/mL Total Protein (6.4-8.9) g/dL Albumin (3.2-5.2) g/dL Globulin (2-4) g/dL Albumin/Globulin Ratio (1-3) Procalcitonin 0.9 H (<0.6) ng/mL TSH (0.34-5.60) mcIU/mL Microbiology and Other Data: Microbiology 08/14/16 18:00 Urine Culture - Final Urine No Growth (<1,000 CFU/mL) Assess/Plan/Problems-Billing Ms Scott is an 81 yo F who has a h/o HTN who presented to the ER with c/o dyspnea and was ultimately found to have massive pleural thickening on the left. - Patient Problems (1) Acute CVA (cerebrovascular accident) Current Visit: Yes Status: Acute Code(s): I63.9 - CEREBRAL INFARCTION, UNSPECIFIED SNOMED Code(s): 468379540 Comment: Continue ASA. No further treatment beyond PT/OT/speech. Continue prozac 20mg daily for depression but the prozac may also help with motor recovery from the stroke. (2) Malignant mesothelioma of pleura Current Visit: Yes Status: Acute Code(s): C45.0 - MESOTHELIOMA OF PLEURA SNOMED Code(s): 249100559 Comment: Decision on treatment will likely be related to the patient's recovery from her stroke. ? hospice as she has shown very little improvement so far. (3) Anemia Current Visit: Yes Status: Acute Code(s): D64.9 - ANEMIA, UNSPECIFIED SNOMED Code(s): 284534478 Comment: H/H stable. Continue B12 supplementation for now. (4) HTN (hypertension) Current Visit: Yes Status: Acute Code(s): I10 - ESSENTIAL (PRIMARY) HYPERTENSION SNOMED Code(s): 26676296 Comment: BP is under good control on metoprolol 50mg TID. (5) Weakness Current Visit: Yes Status: Acute Code(s): R53.1 - WEAKNESS SNOMED Code(s) : 28608817 Comment: Will need STR now given the acute CVA. PT/OT to continue to follow. (6) DVT prophylaxis Current Visit: Yes Status: Acute Code(s): DKP1439 - SNOMED Code(s): 795165966 Comment: dimas (7) Full code status Current Visit: Yes Status: Acute Code(s): Z78.9 - OTHER SPECIFIED HEALTH STATUS SNOMED Code(s): 055732272
[2016-08-22] MEDS: Enoxaparin(*) 40 MG/0.4 ML SYR SUBCUT SCH (12:16)
[2016-08-23] MEDS: NS 0.9% 1000 ML* 1,000 ML IV SCH ×2 (06:08→17:16)
[2016-08-23] MEDS: Metoprolol Tartrate TAB* 50 mg PO SCH ×3 (08:48→19:45)
[2016-08-23] MEDS: Cyanocobalamin TAB* 500 MCG PO SCH (08:48)
[2016-08-23] MEDS: FLUoxetine CAP* 20 MG PO SCH (08:48)
[2016-08-23] MEDS: Aspirin EC Low Dose* 81 MG TAB.EC PO SCH (08:49)
[2016-08-23] MEDS: Enoxaparin(*) 40 MG/0.4 ML SYR SUBCUT SCH (13:58)
--- NOTE | 2016-08-23 15:10 | PN ---
Progress Note - Progress Note Date of Service: 08/23/16 Note: Palliative care follow up up note Spoke with Virgil SHORE at length. States patient did not want to eat or participate in rehab this morning. He told her she had to do both or he would spank her. He wants her to do rehab and they are looking into options. I inquired that now she has the capacity as she is verbal and interactive that she can make her own decisions for herself. Then had a family meeting with patient and discussed options of hospice and not having to do rehab. Patient is overwhelmed with all the information. Recommended discussing with the family and following up. Spoke with social work, Gala who is going to follow up with them.
--- NOTE | 2016-08-23 16:58 | PN ---
Subjective Date of Service: 08/23/16 Interval History: HOSPITALIST PROGRESS NOTE Patient seen and examined at bedside. She is a little more talkative today, denies pain, tolerating diet, willing to work with PT. Family History: Unchanged from Admission Social History: Unchanged from Admission Past Medical History: Unchanged from Admission Objective Active Medications: Acetaminophen (Tylenol Tab*) 650 mg PO Q4H PRN PRN Reason: FEVER/PAIN Last Admin: 08/22/16 03:29 Dose: 650 mg Aspirin (Aspirin Ec Low Dose*) 81 mg PO DAILY [facility] Last Admin: 08/23/16 08:49 Dose: 81 mg Cyanocobalamin (Vitamin B12 Tab*) 1,000 mcg PO DAILY [facility] Last Admin: 08/23/16 08:48 Dose: 1,000 mcg Docusate Sodium (Colace Cap*) 100 mg PO BID PRN PRN Reason: CONSTIPATION Last Admin: 08/21/16 11:04 Dose: 100 mg Enoxaparin Sodium (Lovenox(*)) 40 mg SUBCUT Q24H [facility] Last Admin: 08/23/16 13:58 Dose: 40 mg Fluoxetine HCl (Prozac Cap*) 20 mg PO DAILY [facility] Last Admin: 08/23/16 08:48 Dose: 20 mg Sodium Chloride (Ns 0.9% 1000 Ml*) 1,000 mls @ 100 mls/hr IV PER RATE [facility] Last Admin: 08/23/16 06:08 Dose: 100 mls/hr Metoprolol Tartrate (Lopressor Tab*) 50 mg PO TID [facility] Last Admin: 08/23/16 13:57 Dose: 50 mg Senna (Senokot Tab*) 1 tab PO BEDTIME PRN PRN Reason: CONSTIPATION Last Admin: 08/21/16 11:04 Dose: 1 tab Vital Signs 08/23/16 11:17 Temperature 97.2 F Pulse Rate 86 Respiratory 24 Rate Blood Pressure 138/52 (mmHg) O2 Sat by Pulse 96 Oximetry Oxygen Devices in Use Now: None Appearance: Elderly lady sitting up in a recliner in [facility]. Eyes: No Scleral Icterus Ears/Nose/Mouth/Throat: Mucous Membranes Moist Neck: Trachea Midline Respiratory: Symmetrical Chest Expansion and Respiratory Effort, Clear to Auscultation Cardiovascular: RRR - Normal S1 and S2 Abdominal: NL Sounds; No Tenderness; No Distention Neurological: - - Alert and awake, speech is sparse, but answering question, RLE weakness 4/5 Lines/Tubes/Other Access: Clean, Dry and Intact Peripheral IV Nutrition: Taking PO's Result Diagrams: 08/22/16 07:30 08/22/16 05:36 Assess/Plan/Problems-Billing Assessment: Ms Scott is an 81 yo F who has a h/o HTN who presented to the ER with c/o dyspnea and was ultimately found to have massive pleural thickening on the left. - Patient Problems (1) Acute CVA (cerebrovascular accident) Comment: - MRI brain showed left SHEA acute CVA. - Carotid US showed bilateral stenosis 50-69%. - Echo showed no PFO. - Neurology input appreciated. - Continue ASA. - No further treatment beyond PT/OT/speech - she appears to be participating more now. - Continue Fluoxetine 20mg daily for depression but it may also help with motor recovery from the stroke. (2) Malignant mesothelioma of pleura Comment: - I met with her MONE who just arrived from [place]. He will talk more to patient and other family members, but as she's working more with PT, they're interested in d/c to SNF for rehab. If her conditions decline, they would then transition her to Hospice. (3) Anemia Comment: - H/H remains stable. - Continue B12 supplementation. (4) HTN (hypertension) Comment: - Controlled. - Continue metoprolol 50mg TID. (5) DVT prophylaxis Comment: - Lovenox. (6) DNR (do not resuscitate) Status and Disposition: Inpatient.
[2016-08-24] MEDS: NS 0.9% 1000 ML* 1,000 ML IV SCH ×2 (03:50→14:22)
[2016-08-24] MEDS: Metoprolol Tartrate TAB* 50 mg PO SCH ×3 (08:48→20:49)
[2016-08-24] MEDS: FLUoxetine CAP* 20 MG PO SCH (08:48)
[2016-08-24] MEDS: Aspirin EC Low Dose* 81 MG TAB.EC PO SCH (08:48)
[2016-08-24] MEDS: Cyanocobalamin TAB* 500 MCG PO SCH (08:48)
[2016-08-24] MEDS: Enoxaparin(*) 40 MG/0.4 ML SYR SUBCUT SCH (12:46)
--- NOTE | 2016-08-24 16:41 | PN ---
Subjective Date of Service: 08/24/16 Interval History: HOSPITALIST PROGRESS NOTE Patient seen and examined at bedside. She is in better spirits today, interacting with her family. Denies pain, appetite has improved - ate her hospital breakfast plus pastries her family brought her. Family History: Unchanged from Admission Social History: Unchanged from Admission Past Medical History: Unchanged from Admission Objective Active Medications: Acetaminophen (Tylenol Tab*) 650 mg PO Q4H PRN PRN Reason: FEVER/PAIN Last Admin: 08/22/16 03:29 Dose: 650 mg Aspirin (Aspirin Ec Low Dose*) 81 mg PO DAILY [facility] Last Admin: 08/24/16 08:48 Dose: 81 mg Cyanocobalamin (Vitamin B12 Tab*) 1,000 mcg PO DAILY [facility] Last Admin: 08/24/16 08:48 Dose: 1,000 mcg Docusate Sodium (Colace Cap*) 100 mg PO BID PRN PRN Reason: CONSTIPATION Last Admin: 08/21/16 11:04 Dose: 100 mg Enoxaparin Sodium (Lovenox(*)) 40 mg SUBCUT Q24H [facility] Last Admin: 08/24/16 12:46 Dose: 40 mg Fluoxetine HCl (Prozac Cap*) 20 mg PO DAILY [facility] Last Admin: 08/24/16 08:48 Dose: 20 mg Sodium Chloride (Ns 0.9% 1000 Ml*) 1,000 mls @ 100 mls/hr IV PER RATE [facility] Last Admin: 08/24/16 14:22 Dose: 100 mls/hr Metoprolol Tartrate (Lopressor Tab*) 50 mg PO TID [facility] Last Admin: 08/24/16 14:22 Dose: 50 mg Senna (Senokot Tab*) 1 tab PO BEDTIME PRN PRN Reason: CONSTIPATION Last Admin: 08/21/16 11:04 Dose: 1 tab Vital Signs 08/24/16 08/24/16 08/24/16 03:38 07:45 08:00 Temperature 98.0 F 97.7 F Pulse Rate 88 89 Respiratory 18 28 20 Rate Blood Pressure 152/64 139/54 (mmHg) O2 Sat by Pulse 96 95 Oximetry 08/24/16 11:36 Temperature 98.0 F Pulse Rate 83 Respiratory 28 Rate Blood Pressure 134/53 (mmHg) O2 Sat by Pulse 98 Oximetry Oxygen Devices in Use Now: None Appearance: Elderly lady lying in bed in [place]. Eyes: No Scleral Icterus Ears/Nose/Mouth/Throat: Mucous Membranes Moist Neck: Trachea Midline Respiratory: Symmetrical Chest Expansion and Respiratory Effort, Clear to Auscultation Cardiovascular: RRR - Normal S1 and S2 Abdominal: NL Sounds; No Tenderness; No Distention Neurological: Alert and Oriented x 3, - - Mild dysarthia, but speech is more fluent, right hemiparesis leg>arm Lines/Tubes/Other Access: Clean, Dry and Intact Peripheral IV Nutrition: Taking PO's Result Diagrams: 08/22/16 07:30 08/22/16 05:36 Assess/Plan/Problems-Billing Assessment: Ms Scott is an 81 yo F who has a h/o HTN who presented to the ER with c/o dyspnea and was ultimately found to have massive pleural thickening on the left. - Patient Problems (1) Acute CVA (cerebrovascular accident) Comment: - MRI brain showed left SHEA acute CVA. - Carotid US showed bilateral stenosis 50-69%. - Echo showed no PFO. - Neurology input appreciated. - Continue ASA. - No further treatment beyond PT/OT/speech - she appears to be participating more now. - Continue Fluoxetine 20mg daily for depression but it may also help with motor recovery from the stroke. (2) Malignant mesothelioma of pleura Comment: - I met with her MONE who just arrived from [place]. He will talk more to patient and other family members, but as she's working more with PT, they're interested in d/c to SNF for rehab. If her conditions decline, they would then transition her to Hospice. (3) Anemia Comment: - H/H remains stable. - Continue B12 supplementation. (4) HTN (hypertension) Comment: - Controlled. - Continue metoprolol 50mg TID. (5) DVT prophylaxis Comment: - Lovenox. (6) DNR (do not resuscitate) Status and Disposition: Inpatient. Anticipate d/c to rehab when bed available.
[2016-08-25] MEDS ORDERED: hydrALAZINE IV* 20 MG/ML VIAL IV PRN (03:58)
[2016-08-25 07:35] VITALS: BP 159/55
[2016-08-25] MEDS: Metoprolol Tartrate TAB* 50 mg PO SCH (09:04)
[2016-08-25] MEDS: Aspirin EC Low Dose* 81 MG TAB.EC PO SCH (09:04)
[2016-08-25] MEDS: FLUoxetine CAP* 20 MG PO SCH (09:04)
[2016-08-25] MEDS: Cyanocobalamin TAB* 500 MCG PO SCH (09:04)
--- NOTE | 2016-08-25 12:28 | DS ---
CC: Dr. Almaguer * DISCHARGE SUMMARY: DATE OF ADMISSION: 08/14/16 DATE OF DISCHARGE: 08/25/16 PRIMARY CARE PROVIDER: Dr. Almaguer. DISCHARGE DIAGNOSES: 1. Left anterior cerebral artery acute cerebrovascular accident. 2. Malignant mesothelioma of the pleura. 3. Anemia of chronic disease and vitamin B12 deficiency and thrombocytosis, likely associated with malignancy. 4. Hypokalemia. SECONDARY DIAGNOSIS: Hypertension. MEDICATION LIST: 1. Acetaminophen 650 mg p.o. q.4 hours p.r.n. pain or fever. 2. Aspirin 81 mg p.o. daily. 3. Vitamin B12 1000 mcg p.o. daily. 4. Colace 100 mg p.o. b.i.d. p.r.n. constipation. 5. Lovenox 40 mg subcutaneously daily for DVT prophylaxis until the patient is able to move more. 6. Fluoxetine 20 mg p.o. daily. 7. Metoprolol tartrate 50 mg p.o. t.i.d. 8. Senna 1 tablet p.o. at bedtime as needed for constipation. Hydrochlorothiazide was discontinued. HOSPITAL COURSE: Ms. Scott is an 81-year-old lady with past medical history as stated above that presented to the emergency room on 08/14/16 with complaint of dyspnea both at rest and with exertion that had started a week and a half prior to admission. She also had lost 5 to 10 pounds over the past 3 months. For more details about her presentation, I refer you to her history and physical. In the emergency room, the patient had a chest x-ray that showed a moderate left pleural effusion and that could be partially loculated. Left lower lung atelectasis versus consolidation. CT of the brain without contrast showed no acute intracranial pathology. A transthoracic echocardiogram showed ejection fraction greater than 65% with [id number] concentric LVH. The left ventricle appeared hyperdynamic. There was moderate aortic stenosis. The patient was admitted for further workup of her suspected pleural effusion. The patient underwent a CTA of the chest that showed no arterial filling defect to suggest pulmonary embolism, but it actually revealed that the pleural effusion was not a pleural effusion but actually extensive nodular pleural thickening of the left hemithorax with enlarged pericardial lymph node concerning for neoplasm. The patient underwent a pleural biopsy on 08/16/16 and pathology revealed a malignant mesothelioma. The patient was seen in consultation by Oncology (Dr. Hampton) and he felt that she would need further workup. by then, the patient had developed altered mental status and he recommended MRI of the brain. He felt that she would need to be stronger and out of the hospital before considerations for treatment were given. As described above, the patient was noted to have altered mental status and she was also found to have right-sided weakness. A CT of the brain was performed at that time and it showed in the periventricular white matter of the left frontal lobe, there was a focal 9-mm hypoattenuation. This could represent more confluent area of microvascular disease or alternatively a metastasis. Recommendation was also for MRI of the brain that the patient underwent and showed findings most consistent with acute infarction in the distribution of the left anterior cerebral artery. The patient was seen in consultation by Neurology (Dr. Mccurdy). He felt that her new-onset anterior cerebral artery infarct would explain her right leg weakness, but he felt that it may or may not be the explanation for her paucity of speech. Impression was that she was also depressed regarding her diagnosis. Further workup was performed with a carotid Doppler that showed bilateral carotid stenosis measuring 50% to 69%. She had a limited echocardiogram with a bubble study and a PFO was not demonstrated. Neurology recommendation was to continue aspirin and to discuss with family if rehab would be pursued. A statin was not added as her LDL was only 63. The patient's family (daughter and son-in-law) came to visit her from [place] and have helped her through this process. The patient has had improvement of her right hemiparesis and of her speech and after discussing her options with her family, she wishes to go to a [facility] for rehabilitation at this point. She is aware of her poor prognosis with mesothelioma and the plan is when she starts to decline as outpatient, at that point, she would change to hospice services at the usp or consideration would be given to the hospice care residence too. The patient was offered a bed at [facility], and the family and the patient have accepted and the plan is for her to be discharged there today to continue her rehabilitation process. PHYSICAL EXAMINATION: Vital Signs: Temperature 97.9, heart rate is 91, respiratory rate is 18, oxygen saturation is 93% on room air, blood pressure is 159/55. General: The patient is an elderly lady, lying in bed, in no acute distress. CVS: Normal S1, S2. Regular rate and rhythm. Chest: Breath sounds present bilaterally with no added sounds. Extremities: No edema. Neuro : She is alert, awake, oriented to self and place. She has right hemiparesis, leg greater than arm. Her speech, it is more fluent now but still sparse. DIET: Regular diet. ACTIVITIES: As tolerated. DISPOSITION: To [facility] for rehab. STATUS WHILE IN THE HOSPITAL: Inpatient. Please keep in mind this is a summarized version of this patient's prolonged hospital stay. If you need more information, please do not hesitate to call me at [phone] or please obtain the full medical records. TIME SPENT: Approximately 50 minutes was spent to complete this discharge. [id number]/[facility] #: [id number]
== END 2016-08-25 12:50 | DRG 180 ==
LOC: ED 11:13 → MEDTELE 16:18
PROVIDERS: ADMIT Internal Medicine; ATTEND Internal Medicine
PROC: 0W9B3ZX Drainage of Left Pleural Cavity, Percutaneous Approach, Diagnostic (ICD-10-PCS; 2016-08-16)
PROC: 4A10X4Z Monitoring of Central Nervous Electrical Activity, External Approach (ICD-10-PCS; principal; 2016-08-19)
DX: C45.0 Mesothelioma of pleura (principal); I63.59 Cerebral infarction due to unspecified occlusion or stenosis of other cerebral artery; J90 Pleural effusion, not elsewhere classified; G81.91 Hemiplegia, unspecified affecting right dominant side; R00.0 Tachycardia, unspecified; I10 Essential (primary) hypertension; Z96.643 Presence of artificial hip joint, bilateral; I35.0 Nonrheumatic aortic (valve) stenosis; I65.23 Occlusion and stenosis of bilateral carotid arteries; M19.90 Unspecified osteoarthritis, unspecified site; D63.8 Anemia in other chronic diseases classified elsewhere; E53.8 Deficiency of other specified B group vitamins; D47.3 Essential (hemorrhagic) thrombocythemia; Z88.0 Allergy status to penicillin; Z91.81 History of falling; Z72.89 Other problems related to lifestyle; Z79.82 Long term (current) use of aspirin; Z79.01 Long term (current) use of anticoagulants; E87.6 Hypokalemia; R29.700 NIHSS score 0; Z66 Do not resuscitate
CPT/HCPCS: 36415; 70450; 70553; 71010; 71275; 76942; 80048; 80053; 80061; 81003; 81015; 82607; 82728; 83540; 83550; 83605; 83735; 83880; 83921; 84145; 84443; 84484; 85025; 85027; 85379; 85610; 85730; 86140; 87040; 87086; 88172; 88173; 88305; 88341; 88342; 93005; 93306; 93308; 93880; 94760; 95816; 99213; 99223; 99233; A9270-GY; A9579; G0463; J0360; J0456; J0696; J1650; J3010; Q9967